=== PATIENT | male | born 1975 | race American Indian/Alaskan Native ===

== ENCOUNTER 2018-04-05 20:43 | Emergency (ER) | payer OTHER ==
[2018-04-05 21:30] VITALS: BP 111/65
[2018-04-05] MEDS ORDERED: NORCO 5/325 ONE (22:17)
[2018-04-05] MEDS ORDERED: NORCO 5/325 PO ONE (22:20)
--- NOTE | 2018-04-05 22:36 | XRay Report ---
FINAL REPORT PROCEDURE: XR ANKLE 3+V LT TECHNIQUE: LEFT ankle radiographs, AP, lateral, and oblique views. CPT 23541 HISTORY: soccer injury pain from heel up back of calf COMPARISON: No prior studies are available for comparison. FINDINGS: Fracture (s) and/or Dislocation(s): None. Alignment: Normal. Joint space(s): Normal. Soft tissues: Normal. Bone mineralization: Normal. Foreign bodies: None. Calcaneal spurring: None. IMPRESSION: Normal Examination.
--- NOTE | 2018-04-05 22:37 | XRay Report ---
FINAL REPORT PROCEDURE: XR FOOT 3+V LT TECHNIQUE: LEFT foot radiographs, AP, lateral, and oblique views. CPT 81193 HISTORY: soccer injury painful heel COMPARISON: No prior studies are available for comparison. FINDINGS: Fracture (s) and/or Dislocation(s): None . Alignment: Normal . Joint space(s): Normal . Soft tissues: Normal . Bone mineralization: Normal . Foreign bodies: None . Calcaneal spurring: None . IMPRESSION: Normal Examination .
--- NOTE | 2018-04-06 02:38 | Emergency Department Report ---
ED Lower Extremity HPI - General Chief Complaint: Extremity Injury, Lower Stated Complaint: LEFT FOOT PAIN Time Seen by Provider: 04/06/18 02:04 Source: patient Mode of arrival: Wheelchair Limitations: No Limitations - History of Present Illness Initial Comments: Patient injured his left heel while he was playing baseball tonight, while he was leaning forward to throw a ball from first base, position he was covering, to third base, when he heard a loud pop in the back of his left heel. He was able take a couple of quick steps, but was unable to walk after that, has severe pain in the back of his left heel, with inability to bear weight. He has no other injury. Onset/Timin -: Sudden, hour(s) Injury: Foot: Left Type of Injury: inversion, hyperflexion Place: other (sports tournament) Severity: severe Severity scale (0 -10): 9 Improves With: nothing Worsens With: movement Context: other (throwing) Associated Symptoms: snap/pop sensation. denies: numbness, tingling - Related Data Previous Rx's Medication Instructions Recorded Last Taken Type HYDROcodone/ACETAMINOPHEN [[place] 1 each PO Q6HR PRN #10 tablet 04/06/18 Unknown Rx 5-325 Tablet] Allergies Allergy/AdvReac Type Severity Reaction Status Date / Time No Known Allergies Allergy Unverified 04/05/18 21:21 ED Review of Systems ROS: Stated complaint: LEFT FOOT PAIN Other details as noted in HPI Comment: All other systems reviewed and negative Constitutional: denies: chills, fever Eyes: denies: eye pain, eye discharge, vision change Respiratory: denies: cough, shortness of breath, wheezing Cardiovascular: denies: chest pain, palpitations Gastrointestinal: denies: abdominal pain, nausea, diarrhea Musculoskeletal: other (pain left heel) Skin: denies: rash, lesions Neurological: denies: headache, weakness, paresthesias Psychiatric: denies: anxiety, depression ED Past Medical Hx - Past Medical History Hx GERD: Yes - Social History Smoking Status: Unknown if ever smoked Substance Use Type: Alcohol - Medications Home Medications: Home Medications Medication Instructions Recorded Confirmed Last Taken Type HYDROcodone/ACETAMINOPHEN [[place] 1 each PO Q6HR PRN #10 tablet 04/06/18 Unknown Rx 5-325 Tablet] ED Physical Exam - General Limitations: No Limitations General appearance: alert, in distress - Head Head exam: Present: atraumatic, normocephalic - Eye Eye exam: Present: PERRL, EOMI - ENT ENT exam: Present: normal exam - Neck Neck exam: Present: normal inspection. Absent: tenderness - Respiratory Respiratory exam: Present: normal lung sounds bilaterally - Cardiovascular Cardiovascular Exam: Present: regular rate - GI/Abdominal GI/Abdominal exam: Present: soft, normal bowel sounds - Expanded Lower Extremity Exam Left Hip exam: Present: normal inspection Upper Leg exam: Present: normal inspection Knee exam: Present: normal inspection Lower Leg exam: Present: tenderness (left Achilles tendon insertion area, with palpable defect) Foot/Toe exam: Present: calcaneal tenderness (palpable Achilles tendon defect posterior calcaneus). Absent: full ROM (unable to plantar flex foot against resistance, normal toe movements, good dorsiflexion and plantar flexion of great toe on left) Neuro vascular tendon exam: Present: no vascular compromise. Absent: pulse deficit Gait: Positive: unable to bear weight (secondary to pain) - Neurological Exam Neurological exam: Present: alert, oriented X3, CN II-XII intact, other (unable to bear weight due to pain). Absent: motor sensory deficit - Psychiatric Psychiatric exam: Present: normal affect, normal mood - Skin Skin exam: Present: warm, dry ED Course Vital Signs 04/05/18 21:19 Temperature 97.5 F L Pulse Rate 58 L Respiratory 18 Rate Blood Pressure 111/65 [Left] O2 Sat by Pulse 100 Oximetry ED Lower Extremity MDM - Radiology Data Radiology results: report reviewed (patient has no bony fracture or dislocation on evaluation of left ankle or foot.) - Medical Decision Making Patient has a left Achilles tendon disruption, he has minimal active flexion of the left foot, but good dorsiflexion, but causes pain at the left Achilles tendon insertion. Nearly complete, he will likely need surgical repair, and should follow with an orthopedist. Referral given. Splint will be applied, crutch training life, but patient has a sedentary job, and feels that he will be adequate - Differential Diagnosis foot fracture, ankle fracture, Achilles tendon disruption Critical Care Time: No Critical care attestation.: If time is entered above; I have spent that time in minutes in the direct care of this critically ill patient, excluding procedure time. ED Disposition Clinical Impression: Achilles tendon tear Qualifiers: Encounter type: initial encounter Laterality: left Qualified Code(s): S86.012A - Strain of left Achilles tendon, initial encounter Disposition: TO HOME OR SELFCARE Is pt being admited?: No Does the pt Need Aspirin: No Condition: Stable Instructions: Crutch Instructions (ED), Achilles Tendon Rupture (ED) Additional Instructions: We have provided a splint which is for comfort and protection of the Achilles tendon, but he will need to see an orthopedic surgeon as soon as possible in order to make arrangements for the repair of the tendon. Use crutches to bear weight, do not attempt to put foot down, but you may take splint off in order to wash or bathe. Keep leg elevated as much as possible, take ibuprofen for minor discomfort, and take hydrocodone for more significant pain. We have provided you a referral to a local orthopedist, Dr. Galeano, and you should contact his office to make arrangements for follow-up. As an alternative, you may follow with an orthopedist at the [facility], where you work. Prescriptions: HYDROcodone/ACETAMINOPHEN [[place] 5-325 Tablet] 1 each PO Q6HR PRN #10 tablet PRN Reason: Pain , Severe (7-10) Referrals: CANDICE GALEANO MD [Staff Physician] - 3-5 Days Forms: Work/School Release Form(ED) Time of Disposition: 02:42
[2018-04-06] MEDS ORDERED: ROXICODONE PO ONE (03:14)
== END 2018-04-06 03:50 | disposition home or self-care (01) ==
LOC: ED 20:43
DX: S91.012A Laceration without foreign body, left ankle, initial encounter (principal); K21.9 Gastro-esophageal reflux disease without esophagitis; X58.XXXA Exposure to other specified factors, initial encounter; Y93.64 Activity, baseball; Y92.89 Other specified places as the place of occurrence of the external cause; Y99.8 Other external cause status
CPT/HCPCS: 99283

== ENCOUNTER 2020-12-02 11:43 | Inpatient (IN) | payer BC, OTHER ==
[2020-12-02] MEDS ORDERED: ACETAMINOPHEN 500 MG TAB PO ONE (11:45)
[2020-12-02] MEDS ORDERED: SODIUM CHLORIDE 0.9% 1000 ML 1,000 ML IV ONE (11:46)
--- NOTE | 2020-12-02 11:48 | Event Note ---
ED Screening Note Date of service: 12/02/20 Time: 11:47 ED Screening Note: 45-year-old -[place] male who was Covid positive for the eighth day presents to the emergency room for worsening symptoms of shortness of breath fever sweats. This initial assessment/diagnostic orders/clinical plan/treatment(s) is/are subject to change based on patients health status, clinical progression and re- assessment by fellow clinical providers in the ED. Further treatment and workup at subsequent clinical providers discretion. Patient/guardian urged not to elope from the ED as their condition may be serious if not clinically assessed and managed. Initial orders include: CBC, CMP, IV insertion, acetaminophen 1 g and normal saline 1 L IV
[2020-12-02] MEDS ORDERED: ONDANSETRON 4 MG/2 ML INJ IV ONE (12:29)
[2020-12-02 12:39] LABS: Basophils % (Auto) 0.2 % (0.0-1.8); Hemoglobin 14.2 gm/dl (11.8-15.2); Lymphocytes # (Auto) 1.6 K/mm3 (1.2-5.4); Lymphocytes % (Auto) 30.7 % (13.4-35.0); Mean Corpuscular HGB Conc 32 % (32-34); Mean Corpuscular Volume 77 fl (84-94); Monocytes # (Auto) 0.4 K/mm3 (0.0-0.8); Monocytes % (Auto) 7.9 % (0.0-7.3); Platelet Count 237 K/mm3 (140-440); Red Blood Count 5.71 M/mm3 (3.65-5.03); Red Cell Distribution Width 15.5 % (13.2-15.2)
--- NOTE | 2020-12-02 12:48 | Emergency Department Report ---
ED Chest Pain HPI - General Chief Complaint: Chest Pain Stated Complaint: COVID +/CHEST PAIN Time Seen by Provider: 12/02/20 11:45 Source: patient Mode of arrival: Wheelchair Limitations: No Limitations - History of Present Illness Initial Comments: This is a 45-year-old -[place] male presents to the emergency department with complaint of chills, subjective fever, sweats, body aches, fatigue, intermittent shortness of breath and some chest discomfort that have been going on for the past 8 days. The patient just tested positive for COVID-19 3 days ago, on 11/29/2020. Patient's also tested positive on the same day. Patient has a history of diabetes but is not currently on any medication. He also has a history of GERD. Patient's primary care physician is a Dr. Kolb. No recent travel. The patient is taken multiple different [id number] medications and vitamins and attempt to treat himself and his symptoms, but he has not gotten any relief. Severity scale (0 -10): 0 - Related Data Previous Rx's Medication Instructions Recorded Last Taken Type HYDROcodone/ACETAMINOPHEN [[place] 1 each PO Q6HR PRN #10 tablet 04/06/18 Unknown Rx 5-325 Tablet] Allergies Allergy/AdvReac Type Severity Reaction Status Date / Time No Known Allergies Allergy Unverified 04/05/18 21:21 Heart Score - HEART Score History: Slightly suspicious EKG: Normal Age: 45-65 Risk factors: 1-2 risk factors Troponin: < normal limit HEART Score: 2 - Critical Actions Critical Actions: 0-3 pts:0.9-1.7%risk of adverse cardiac event.Candidate for discharge ED Review of Systems ROS: Stated complaint: COVID +/CHEST PAIN Other details as noted in HPI Comment: All other systems reviewed and negative Constitutional: chills, diaphoresis, fever, weakness Eyes: denies: eye pain, vision change ENT: denies: ear pain, throat pain Respiratory: cough, shortness of breath Cardiovascular: chest pain. denies: palpitations, edema Gastrointestinal: denies: abdominal pain, vomiting Genitourinary: denies: dysuria, discharge Musculoskeletal: myalgia. denies: joint swelling Skin: denies: rash, lesions Neurological: denies: numbness, paresthesias ED Past Medical Hx - Past Medical History Previous Medical History?: Yes Hx Diabetes: Yes (pre-diabetic) Hx GERD: Yes - Surgical History Past Surgical History?: Yes Additional Surgical History: T&A, Right hand surgery, Right knee surgery, Left Achilles repair - Social History Smoking Status: Current Every Day Smoker Substance Use Type: Alcohol, Prescribed - Medications Home Medications: Home Medications Medication Instructions Recorded Confirmed Last Taken Type HYDROcodone/ACETAMINOPHEN [[place] 1 each PO Q6HR PRN #10 tablet 04/06/18 Unknown Rx 5-325 Tablet] ED Physical Exam - General Limitations: No Limitations - Other Other exam information: GENERAL: The patient is ill-appearing. HENT: Normocephalic. Atraumatic. Patient has moist mucous membranes. EYES: Extraocular motions are intact. NECK: Supple. Trachea is midline. CHEST/LUNGS: Clear to auscultation. A cough heard during examination. No tachypnea accessory muscle use. There is no respiratory distress noted. HEART/CARDIOVASCULAR: Regular. There is no tachycardia. There is no murmur. ABDOMEN: Abdomen is soft, nontender. Patient has normal bowel sounds. SKIN: Skin is warm and dry. NEURO: The patient is awake, alert, and oriented. The patient is cooperative. The patient has no focal neurologic deficits. Normal speech. MUSCULOSKELETAL: There is no tenderness or deformity. There is no limitation range of motion. ED Course Vital Signs 12/02/20 12/02/20 11:47 12:13 Temperature 100.1 F H Pulse Rate 93 H Respiratory 20 20 Rate Blood Pressure 104/49 O2 Sat by Pulse 100 100 Oximetry TOI score - Toi Score Age > 65: (0) No Aspirin use within the Past 7 Days: (0) No 3 or more CAD Risk Factors: (0) No 2 or more Angina events in past 24 hrs: (1) Yes Known CAD with more than 50% Stenosis: (0) No Elevated Cardiac Markers: (0) No ST Deviation Greater than 0.5mm: (0) No TOI Score: 1 ED Medical Decision Making - Lab Data Result diagrams: 12/02/20 12:19 12/02/20 12:19 Lab Results 12/02/20 12/02/20 12/02/20 Range/Units 12:19 12:19 12:19 WBC 5.1 (4.5-11.0) K/mm3 RBC 5.71 H (3.65-5.03) M/mm3 Hgb 14.2 (11.8-15.2) gm/dl Hct 44.0 (35.5-45.6) % MCV 77 L (84-94) fl MCH 25 L (28-32) pg MCHC 32 (32-34) % RDW 15.5 H (13.2-15.2) % Plt Count 237 (140-440) K/mm3 Lymph % (Auto) 30.7 (13.4-35.0) % [place] % (Auto) 7.9 H (0.0-7.3) % Eos % (Auto) 0.0 (0.0-4.3) % Baso % (Auto) 0.2 (0.0-1.8) % Lymph # (Auto) 1.6 (1.2-5.4) K/mm3 [place] # (Auto) 0.4 (0.0-0.8) K/mm3 Eos # (Auto) 0.0 (0.0-0.4) K/mm3 Baso # (Auto) 0.0 (0.0-0.1) K/mm3 Seg Neutrophils % 61.2 (40.0-70.0) % Seg Neutrophils # 3.1 (1.8-7.7) K/mm3 D-Dimer (0-234) ng/mlDDU Sodium 132 L (137-145) mmol/L Potassium 3.6 (3.6-5.0) mmol/L Chloride 97.5 L (98-107) mmol/L Carbon Dioxide 26 (22-30) mmol/L Anion Gap 12 mmol/L BUN 7 L (9-20) mg/dL Creatinine 0.8 (0.8-1.3) mg/dL Estimated GFR > 60 ml/min BUN/Creatinine Ratio 9 % Glucose 106 H (75-100) mg/dL Lactic Acid 1.70 (0.7-2.0) mmol/L Calcium 8.4 (8.4-10.2) mg/dL Ferritin (30.0-300.0) ng/mL Total Bilirubin 0.30 (0.1-1.2) mg/dL AST 94 H (5-40) units/L ALT 125 H (7-56) units/L Alkaline Phosphatase 104 (35-129) units/L Lactate Dehydrogenase 495 H (91-180) units/L Troponin T (0.00-0.029) ng/mL C-Reactive Protein 8.30 H (0.00-1.30) mg/dL Total Protein 7.5 (6.3-8.2) g/dL Albumin 3.5 L (3.9-5) g/dL Albumin/Globulin Ratio 0.9 % Procalcitonin (<0.15) ng/mL 12/02/20 12/02/20 12/02/20 Range/Units 12:19 12:19 12:19 WBC (4.5-11.0) K/mm3 RBC (3.65-5.03) M/mm3 Hgb (11.8-15.2) gm/dl Hct (35.5-45.6) % MCV (84-94) fl MCH (28-32) pg MCHC (32-34) % RDW (13.2-15.2) % Plt Count (140-440) K/mm3 Lymph % (Auto) (13.4-35.0) % [place] % (Auto) (0.0-7.3) % Eos % (Auto) (0.0-4.3) % Baso % (Auto) (0.0-1.8) % Lymph # (Auto) (1.2-5.4) K/mm3 [place] # (Auto) (0.0-0.8) K/mm3 Eos # (Auto) (0.0-0.4) K/mm3 Baso # (Auto) (0.0-0.1) K/mm3 Seg Neutrophils % (40.0-70.0) % Seg Neutrophils # (1.8-7.7) K/mm3 D-Dimer 721.56 H (0-234) ng/mlDDU Sodium (137-145) mmol/L Potassium (3.6-5.0) mmol/L Chloride (98-107) mmol/L Carbon Dioxide (22-30) mmol/L Anion Gap mmol/L BUN (9-20) mg/dL Creatinine (0.8-1.3) mg/dL Estimated GFR ml/min BUN/Creatinine Ratio % Glucose (75-100) mg/dL Lactic Acid (0.7-2.0) mmol/L Calcium (8.4-10.2) mg/dL Ferritin 1627.0 H (30.0-300.0) ng/mL Total Bilirubin (0.1-1.2) mg/dL AST (5-40) units/L ALT (7-56) units/L Alkaline Phosphatase (35-129) units/L Lactate Dehydrogenase (91-180) units/L Troponin T (0.00-0.029) ng/mL C-Reactive Protein (0.00-1.30) mg/dL Total Protein (6.3-8.2) g/dL Albumin (3.9-5) g/dL Albumin/Globulin Ratio % Procalcitonin 0.18 (<0.15) ng/mL 12/02/20 12/02/20 Range/Units 13:23 13:23 WBC (4.5-11.0) K/mm3 RBC (3.65-5.03) M/mm3 Hgb (11.8-15.2) gm/dl Hct (35.5-45.6) % MCV (84-94) fl MCH (28-32) pg MCHC (32-34) % RDW (13.2-15.2) % Plt Count (140-440) K/mm3 Lymph % (Auto) (13.4-35.0) % [place] % (Auto) (0.0-7.3) % Eos % (Auto) (0.0-4.3) % Baso % (Auto) (0.0-1.8) % Lymph # (Auto) (1.2-5.4) K/mm3 [place] # (Auto) (0.0-0.8) K/mm3 Eos # (Auto) (0.0-0.4) K/mm3 Baso # (Auto) (0.0-0.1) K/mm3 Seg Neutrophils % (40.0-70.0) % Seg Neutrophils # (1.8-7.7) K/mm3 D-Dimer (0-234) ng/mlDDU Sodium (137-145) mmol/L Potassium (3.6-5.0) mmol/L Chloride (98-107) mmol/L Carbon Dioxide (22-30) mmol/L Anion Gap mmol/L BUN (9-20) mg/dL Creatinine (0.8-1.3) mg/dL Estimated GFR ml/min BUN/Creatinine Ratio % Glucose (75-100) mg/dL Lactic Acid 1.60 (0.7-2.0) mmol/L Calcium (8.4-10.2) mg/dL Ferritin (30.0-300.0) ng/mL Total Bilirubin (0.1-1.2) mg/dL AST (5-40) units/L ALT (7-56) units/L Alkaline Phosphatase (35-129) units/L Lactate Dehydrogenase (91-180) units/L Troponin T < 0.010 (0.00-0.029) ng/mL C-Reactive Protein (0.00-1.30) mg/dL Total Protein (6.3-8.2) g/dL Albumin (3.9-5) g/dL Albumin/Globulin Ratio % Procalcitonin (<0.15) ng/mL - EKG Data -: EKG Interpreted by Ri EKG shows normal: sinus rhythm, axis, intervals, QRS complexes, ST-T waves Rate: normal - EKG Data When compared to previous EKG there are: previous EKG unavailable Interpretation: normal EKG - Radiology Data Radiology results: report reviewed CT angio chest INDICATION / CLINICAL INFORMATION: MAIN. TECHNIQUE: Axial CT images were obtained after injection of 100 cc of Omnipaque 350 IV contrast using CTA protocol. 3 plane MIP / 3D reconstructions were produced. All CT scans at this location are performed using CT dose reduction for ALARA by means of automated exposure control. COMPARISON: None available. FINDINGS: Following the administration of intravenous contrast, no filling defects are seen in the main pulmonary arteries or their branches. Diffuse bilateral peripheral groundglass opacity is seen in both lungs. No enlarged mediastinal or hilar lymph nodes are identified. No significant skeletal abnormality is identified. IMPRESSION: 1. No evidence of pulmonary embolus 2. Diffuse bilateral peripheral groundglass opacity consistent with atypical or viral pneumonia - Medical Decision Making This patient presents with a 1 week history of fever, chills, body aches, cough, intermittent shortness of breath and was recently found to be positive for COVID-19. He presents with a low-grade fever but the rest of the vital signs have been reassuring thus far. Patient's labs appear consistent with COVID-19. He has elevated inflammatory markers including D-dimer, LDH, CRP and ferritin. He has some mild transaminitis. Patient had one episode of nausea with vomiting after having a CT angiography of the chest in which he had some hematemesis. Chest x-ray shows some mild bilateral groundglass opacities. CT angiography of the chest did not show any pulmonary embolism but showed significant/diffuse bilateral groundglass opacities. The patient has been started on some IV fluid resuscitation, IV Solu-Medrol, IV antibiotics. Given his comorbidities of diabetes, tobacco use, and the level of these elevated inflammatory markers, the patient will be admitted to the hospital for further evaluation and treatment. He was accepted for admission by the hospitalist, Dr. Howell. Critical Care Time: No Critical care attestation.: If time is entered above; I have spent that time in minutes in the direct care of this critically ill patient, excluding procedure time. ED Disposition Clinical Impression: Suspected 2019 novel coronavirus infection, Transaminitis Bilateral pneumonia Qualifiers: Pneumonia type: due to unspecified organism Lung location: unspecified part of lung Qualified Code(s): J18.9 - Pneumonia, unspecified organism Disposition: 09 OP ADMIT IP TO THIS HOSP Is pt being admited?: Yes Condition: Serious Instructions: Bacterial Pneumonia (ED) Referrals: PRIMARY CARE, [Primary Care Provider] - 3-5 Days Time of Disposition: 14:30
--- NOTE | 2020-12-02 12:52 | XRay Report ---
CHEST 1 VIEW 12/02/2020 11:43 AM INDICATION / CLINICAL INFORMATION: covid + fever. COMPARISON: None available. FINDINGS: SUPPORT DEVICES: None. HEART / MEDIASTINUM: No significant abnormality. LUNGS / PLEURA: Faint bilateral peripheral pulmonary opacities are seen. No pneumothorax. ADDITIONAL FINDINGS: No significant additional findings. IMPRESSION: 1. Faint bilateral peripheral pulmonary opacities are compatible with an infectious process including viral etiologies. Signer Name: Rakan Ying MD Signed: 12/02/2020 12:47 PM Workstation Name: No Paper [id number]
[2020-12-02 12:54] LABS: Alanine Aminotransferase 125 units/L (7-56); Albumin 3.5 g/dL (3.9-5); BUN/Creatinine Ratio 9; Blood Urea Nitrogen 7 mg/dL (9-20); Calcium 8.4 mg/dL (8.4-10.2); Hemolysis Index 12
[2020-12-02] MEDS ORDERED: AZITHROMYCIN/NS 500 MG/250 ML 500 MG/250 ML BAG IV ONE (12:59)
[2020-12-02] MEDS ORDERED: methylPREDNISolone Sod Succinate 125 MG/2 ML INJ IV ONE (12:59)
[2020-12-02] MEDS ORDERED: KETOROLAC 30 MG/1 ML INJ IV ONE (12:59)
--- NOTE | 2020-12-02 14:03 | Cat Scan Report ---
CT angio chest INDICATION / CLINICAL INFORMATION: MAIN. TECHNIQUE: Axial CT images were obtained after injection of 100 cc of Omnipaque 350 IV contrast using CTA protoc ol. 3 plane MIP / 3D reconstructions were produced. All CT scans at this location are performed using CT dose reduction for ALARA by means of automated exposure control. COMPARISON: None available. FINDINGS: Following the administration of intravenous contrast, no filling defects are seen in the main pulmona ry arteries or their branches. Diffuse bilateral peripheral groundglass opacity is seen in both lungs . No enlarged mediastinal or hilar lymph nodes are identified. No significant skeletal abnormality is identified. IMPRESSION: 1. No evidence of pulmonary embolus 2. Diffuse bilateral peripheral groundglass opacity consistent with atypical or viral pneumonia Signer Name: Braeden Ying MD FACR Signed: 12/02/2020 1:58 PM Workstation Name: [id number]
[2020-12-02] MEDS ORDERED: diphenhydrAMINE 50 MG/ML VIAL IV ONE (14:29)
[2020-12-02 15:22] LABS: Bilirubin,Urine NEG (Negative); Blood,Urine NEG (Negative); Color,Urine Yellow (Yellow)
[2020-12-02] MEDS: ZOLPIDEM 5 MG TAB PO PRN (22:12)
[2020-12-02] MEDS: guaiFENesin/CODEINE 100-10MG ORAL LIQD 5 ML PO PRN (22:12)
[2020-12-02] MEDS ORDERED: ACETAMINOPHEN 325 MG TAB PO PRN (23:43)
[2020-12-02] MEDS ORDERED: METOCLOPRAMIDE 10 MG/2 ML INJ IV PRN (23:43)
[2020-12-02] MEDS ORDERED: oxyCODONE /ACETAMINOPHEN 5-325MG TAB PO PRN (23:43)
[2020-12-02] MEDS ORDERED: HYDROmorphone 1 MG/1 ML INJ IV PRN (23:43)
--- NOTE | 2020-12-02 23:43 | History and Physical Report ---
History of Present Illness Date of examination: 12/02/20 Date of admission: 12/02/20 14:30 Chief complaint: Fever and cough for 1 week History of present illness: 45-year-old -[place] male with past medical history significant for borderline diabetes comes in for fever chills and diaphoresis and body aches and fatigue for the past 7 days. Patient apparently tested positive for COVID-19 on November 29, 2020. Patient says he was exposed at work. His also got Covid who works insulin [facility]. Patient took multiple different [id number] medications with no help. Patient continued to feel short of breath and hence came to the emergency room for evaluation. In the emergency room patient was found to be having normal oxygenation on room air. Bilateral pneumonia on chest x-ray hence admission. Past medical history --Diabetes: Yes (pre-diabetic) --GERD: Yes - Surgical History Past Surgical History?: Yes Additional Surgical History: T&A, Right hand surgery, Right knee surgery, Left Achilles repair - Social History Smoking Status: Current Every Day Smoker--1/2 pack per day Substance Use Type: Alcohol, Prescribedm Family history HTN - Medications Home Medications: Home Medications Medication Instructions Recorded Confirmed Last Taken Type HYDROcodone/ACETAMINOPHEN [[place] 1 each PO Q6HR PRN #10 tablet 04/06/18 Unknown Rx 5-325 Tablet] Review of Systems ROS: Stated complaint: COVID +/CHEST PAIN Other details as noted in HPI Comment: All other systems reviewed and negative Constitutional: chills, diaphoresis, fever, weakness Eyes: denies: eye pain, vision change ENT: denies: ear pain, throat pain Respiratory: cough, shortness of breath Cardiovascular: chest pain. denies: palpitations, edema Gastrointestinal: denies: abdominal pain, vomiting Genitourinary: denies: dysuria, discharge Musculoskeletal: myalgia. denies: joint swelling Skin: denies: rash, lesions Neurological: denies: numbness, paresthesias Medications and Allergies Allergies Allergy/AdvReac Type Severity Reaction Status Date / Time No Known Allergies Allergy Unverified 04/05/18 21:21 Home Medications Medication Instructions Recorded Confirmed Last Taken Type HYDROcodone/ACETAMINOPHEN [[place] 1 each PO Q6HR PRN #10 tablet 04/06/18 12/03/20 Unknown Rx 5-325 Tablet] Omeprazole 40 mg PO DAILY 12/03/20 12/03/20 Unknown History Active Meds: Active Medications Pseudoephedrine/Acetam/Chlorphenir (Guaifenesin/Codeine 100-10mg Oral Liqd 5 Ml) 10 ml PO Q8HR PRN PRN Reason: Cough Last Admin: 12/02/20 22:12 Dose: 10 ml Documented by: Zolpidem Tartrate (Zolpidem 5 Mg Tab) 5 mg PO QHS PRN PRN Reason: Sleep Last Admin: 12/02/20 22:12 Dose: 5 mg Documented by: Exam - Constitutional Vitals: Temp Pulse Resp BP Pulse Ox 97.4 F L 64 16 103/46 99 12/02/20 21:48 12/02/20 21:48 12/02/20 21:48 12/02/20 21:48 12/02/20 21:48 General appearance: Present: mild distress, well-nourished - EENT Eyes: Present: PERRL ENT: hearing intact, clear oral mucosa - Neck Neck: Present: supple, normal ROM - Respiratory Respiratory effort: normal Respiratory: bilateral: CTA - Cardiovascular Heart rate: 88 Rhythm: regular Heart Sounds: Present: S1 & S2. Absent: rub, click - Extremities Extremities: pulses symmetrical, No edema Peripheral Pulses: within normal limits - Abdominal General gastrointestinal: Present: soft, non-tender, non-distended, normal bowel sounds Male genitourinary: Present: normal - Rectal Rectal Exam: deferred - Integumentary Integumentary: Present: clear, warm, dry - Musculoskeletal Musculoskeletal: gait normal, strength equal bilaterally - Psychiatric Psychiatric: appropriate mood/affect, intact judgment & insight - Neurologic Neurologic: CNII-XII intact, moves all extremities - Allied Health Allied health notes reviewed: nursing, case management HEART Score - HEART Score History: Slightly suspicious EKG: Normal Age: 45-65 Risk factors: 1-2 risk factors Troponin: Troponin T < 0.010 ng/mL (0.00-0.029) 12/02/20 13:23 Troponin: < normal limit HEART Score: 2 - Critical Actions Critical Actions: 0-3 pts:0.9-1.7%risk of adverse cardiac event.Candidate for d ischarge Results - Labs CBC & Chem 7: 12/02/20 12:19 12/02/20 12:19 Labs: Laboratory Last Values WBC 5.1 K/mm3 (4.5-11.0) 12/02/20 12:19 RBC 5.71 M/mm3 (3.65-5.03) H 12/02/20 12:19 Hgb 14.2 gm/dl (11.8-15.2) 12/02/20 12:19 Hct 44.0 % (35.5-45.6) 12/02/20 12:19 MCV 77 fl (84-94) L 12/02/20 12:19 MCH 25 pg (28-32) L 12/02/20 12:19 MCHC 32 % (32-34) 12/02/20 12:19 RDW 15.5 % (13.2-15.2) H 12/02/20 12:19 Plt Count 237 K/mm3 (140-440) 12/02/20 12:19 Lymph % (Auto) 30.7 % (13.4-35.0) 12/02/20 12:19 [place] % (Auto) 7.9 % (0.0-7.3) H 12/02/20 12:19 Eos % (Auto) 0.0 % (0.0-4.3) 12/02/20 12:19 Baso % (Auto) 0.2 % (0.0-1.8) 12/02/20 12:19 Lymph # (Auto) 1.6 K/mm3 (1.2-5.4) 12/02/20 12:19 [place] # (Auto) 0.4 K/mm3 (0.0-0.8) 12/02/20 12:19 Eos # (Auto) 0.0 K/mm3 (0.0-0.4) 12/02/20 12:19 Baso # (Auto) 0.0 K/mm3 (0.0-0.1) 12/02/20 12:19 Seg Neutrophils % 61.2 % (40.0-70.0) 12/02/20 12:19 Seg Neutrophils # 3.1 K/mm3 (1.8-7.7) 12/02/20 12:19 D-Dimer 721.56 ng/mlDDU (0-234) H 12/02/20 12:19 Sodium 132 mmol/L (137-145) L 12/02/20 12:19 Potassium 3.6 mmol/L (3.6-5.0) 12/02/20 12:19 Chloride 97.5 mmol/L (98-107) L 12/02/20 12:19 Carbon Dioxide 26 mmol/L (22-30) 12/02/20 12:19 Anion Gap 12 mmol/L 12/02/20 12:19 BUN 7 mg/dL (9-20) L 12/02/20 12:19 Creatinine 0.8 mg/dL (0.8-1.3) 12/02/20 12:19 Estimated GFR > 60 ml/min 12/02/20 12:19 BUN/Creatinine Ratio 9 % 12/02/20 12:19 Glucose 106 mg/dL (75-100) H 12/02/20 12:19 POC Glucose 188 mg/dL (70-105) H 12/02/20 21:59 Lactic Acid 1.60 mmol/L (0.7-2.0) 12/02/20 13:23 Calcium 8.4 mg/dL (8.4-10.2) 12/02/20 12:19 Ferritin 1627.0 ng/mL (30.0-300.0) H 12/02/20 12:19 Total Bilirubin 0.30 mg/dL (0.1-1.2) 12/02/20 12:19 AST 94 units/L (5-40) H 12/02/20 12:19 ALT 125 units/L (7-56) H 12/02/20 12:19 Alkaline Phosphatase 104 units/L (35-129) 12/02/20 12:19 Lactate Dehydrogenase 495 units/L (91-180) H 12/02/20 12:19 Troponin T < 0.010 ng/mL (0.00-0.029) 12/02/20 13:23 C-Reactive Protein 8.30 mg/dL (0.00-1.30) H 12/02/20 12:19 Total Protein 7.5 g/dL (6.3-8.2) 12/02/20 12:19 Albumin 3.5 g/dL (3.9-5) L 12/02/20 12:19 Albumin/Globulin Ratio 0.9 % 12/02/20 12:19 Procalcitonin 0.18 ng/mL (<0.15) 12/02/20 12:19 Urine Color Yellow (Yellow) 12/02/20 14:44 Urine Turbidity Clear (Clear) 12/02/20 14:44 Urine pH 6.0 (5.0-7.0) 12/02/20 14:44 Ur Specific [place] 1.015 (1.003-1.030) 12/02/20 14:44 Urine Protein 30 mg/dl mg/dL (Negative) 12/02/20 14:44 Urine Glucose (UA) Neg mg/dL (Negative) 12/02/20 14:44 Urine Ketones Neg mg/dL (Negative) 12/02/20 14:44 Urine Blood Neg (Negative) 12/02/20 14:44 Urine Nitrite Neg (Negative) 12/02/20 14:44 Urine Bilirubin Neg (Negative) 12/02/20 14:44 Urine Urobilinogen 2.0 mg/dL (<2.0) 12/02/20 14:44 Ur Leukocyte Esterase Neg (Negative) 12/02/20 14:44 Urine WBC (Auto) 1.0 /HPF (0.0-6.0) 12/02/20 14:44 Urine RBC (Auto) 0.0 /HPF (0.0-6.0) 12/02/20 14:44 Short CBC 12/02/20 Range/Units 12:19 WBC 5.1 (4.5-11.0) K/mm3 Hgb 14.2 (11.8-15.2) gm/dl Hct 44.0 (35.5-45.6) % Plt Count 237 (140-440) K/mm3 BMP 12/02/20 12:19 Sodium 132 L Potassium 3.6 Chloride 97.5 L Carbon Dioxide 26 BUN 7 L Creatinine 0.8 Glucose 106 H Calcium 8.4 Cardiac Enzymes 12/02/20 Range/Units 13:23 Troponin T < 0.010 (0.00-0.029) ng/mL Liver Function 12/02/20 Range/Units 12:19 Total Bilirubin 0.30 (0.1-1.2) mg/dL AST 94 H (5-40) units/L ALT 125 H (7-56) units/L Alkaline Phosphatase 104 (35-129) units/L Albumin 3.5 L (3.9-5) g/dL Urine 12/02/20 Range/Units 14:44 Urine Color Yellow (Yellow) Urine pH 6.0 (5.0-7.0) Ur Specific [place] 1.015 (1.003-1.030) Urine Protein 30 mg/dl (Negative) mg/dL Urine Glucose (UA) Neg (Negative) mg/dL Microbiology: Microbiology 12/02/20 12:19 Peripheral/Venous Blood Culture - Preliminary Culture in Progress 12/02/20 12:19 Peripheral/Venous Blood Culture - Preliminary Culture in Progress - Imaging and Cardiology EKG: report reviewed (Sinus rhythm-heart rate of 78/min) Chest x-ray: report reviewed Imaging and Cardiology: Chest x-ray IMPRESSION: 1. Faint bilateral peripheral pulmonary opacities are compatible with an infectious process including viral etiologies. Ramirez/IV: IV Catheter Type [Right Peripheral IV Antecubital] Assessment and Plan Advance Directives: Yes (Full code) VTE prophylaxis?: Chemical Plan of care discussed with patient/family: Yes - Patient Problems (1) Acute respiratory failure with hypoxia Current Visit: Yes Status: Acute Plan to address problem: Patient is ambulatory saturations are low Oxygen supplementation as necessary (2) Bilateral pneumonia Current Visit: Yes Status: Acute Qualifiers: Pneumonia type: due to unspecified organism Lung location: unspecified part of lung Qualified Code(s): J18.9 - Pneumonia, unspecified organism Plan to address problem: Treat as community-acquired pneumonia for now Check pro calcitonin level ID consult requested IV Rocephin and Zithromax initiated Patient initiated on IV Decadron 8 mg every 24 (3) Suspected 2019 novel coronavirus infection Current Visit: Yes Status: Acute Plan to address problem: Coronavirus PCR pending (4) Transaminitis Current Visit: Yes Status: Acute Plan to address problem: Probably secondary to Covid infection AST is 94 and ALT is 127 (5) T2DM (type 2 diabetes mellitus) Current Visit: Yes Status: Chronic 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 Plan to address problem: Borderline We will recheck hemoglobin A1c Coverage for now (6) GERD (gastroesophageal reflux disease) Current Visit: Yes Status: Chronic Qualifiers: Esophagitis presence: without esophagitis Qualified Code(s): K21.9 - Gastro-esophageal reflux disease without esophagitis Plan to address problem: Patient initiated on famotidine (7) Hyponatremia Current Visit: Yes Status: Acute Plan to address problem: Mild Should correct weights of No IV fluids at this time because of possible Covid infection (8) DVT prophylaxis Current Visit: Yes Status: Acute Plan to address problem: On Lovenox and GI prophylaxis Lovenox 110 milligrams every 12 subcu because of elevated D-dimers and ferritin D-dimer is 721 and ferritin is 1627
[2020-12-02] MEDS ORDERED: dexAMETHasone 4 MG/ML VIAL IV SCH (23:45)
[2020-12-03] MEDS: guaiFENesin/CODEINE 100-10MG ORAL LIQD 5 ML PO PRN ×2 (05:31→14:10)
[2020-12-03] MEDS ORDERED: AZITHROMYCIN/NS 500 MG/250 ML 500 MG/250 ML BAG IV SCH (10:00)
[2020-12-03] MEDS ORDERED: dexAMETHasone 4 MG/ML VIAL IV SCH ×2 (10:00)
[2020-12-03 10:01] LABS: Basophils % (Auto) 0.3 % (0.0-1.8); Hematocrit 43.5 % (35.5-45.6); Hemoglobin 14.8 gm/dl (11.8-15.2); Lymphocytes # (Auto) 0.9 K/mm3 (1.2-5.4); Mean Corpuscular HGB Conc 34 % (32-34); Mean Corpuscular Volume 75 fl (84-94); Monocytes # (Auto) 0.5 K/mm3 (0.0-0.8); Monocytes % (Auto) 7.5 % (0.0-7.3); Platelet Count 272 K/mm3 (140-440); Red Blood Count 5.81 M/mm3 (3.65-5.03); Red Cell Distribution Width 15.4 % (13.2-15.2)
[2020-12-03 10:19] LABS: Alanine Aminotransferase 108 units/L (7-56); Albumin 3.9 g/dL (3.9-5); BUN/Creatinine Ratio 13; Blood Urea Nitrogen 10 mg/dL (9-20); Calcium 8.5 mg/dL (8.4-10.2); Hemolysis Index 20
[2020-12-03] MEDS: ENOXAPARIN 120 MG/0.8 ML INJ SUB-Q SCH ×2 (10:40→22:35)
[2020-12-03] MEDS: FAMOTIDINE 20 MG TAB PO SCH ×2 (10:41→22:35)
[2020-12-03] MEDS: ZINC SULFATE 220 MG CAP PO SCH ×3 (10:42→22:35)
[2020-12-03] MEDS: cefTRIAXone/NS 2 GM/100 ML 2 GM/100 ML BAG IV SCH (10:42)
[2020-12-03] MEDS: ASCORBIC ACID 500 MG TAB PO SCH ×3 (10:42→22:35)
[2020-12-03 13:48] LABS: Alanine Aminotransferase 102 units/L (7-56); Albumin 3.5 g/dL (3.9-5); Blood Urea Nitrogen 10 mg/dL (9-20); Calcium 8.5 mg/dL (8.4-10.2); Hemolysis Index 9
[2020-12-03 14:01] LABS: BUN/Creatinine Ratio 14
[2020-12-03] MEDS ORDERED: LOPERAMIDE 2 MG CAP PO PRN (16:00)
[2020-12-03] MEDS: guaiFENesin ER 600 MG TAB PO SCH ×2 (17:59→22:35)
--- NOTE | 2020-12-03 18:18 | Progress Note ---
Assessment and Plan Assessment and plan: COVID-19 pneumonia -12/02 CXR shows faint bilateral peripheral pulmonary opacities which are compatible with infectious process including viral etiologies -12/02 CTA chest shows diffuse bilateral peripheral groundglass opacities consistent with atypical viral pneumonia, no pulmonary embolism -Patient tested positive for COVID-19 infection on 11/29/2020 at outside facility -12/03 COVID-19 PCR positive -S/p azithromycin and Solu-Medrol in the emergency department -Azithromycin 500 mg p.o. daily for 3 doses, ceftriaxone 2 g per 24 hours IV -12/02 procalcitonin 0.18 -SPO2 monitoring -Pulmonary hygiene -Supplemental oxygen as needed -OOB 3 times daily -Anticoagulation per protocol -Trend Covid inflammatory markers for risk stratification -Obtain ambulatory SPO2 prior to discharge -Infectious disease consulted, appreciate recommendations -Vitamin C, zinc, vitamin D - 12/02 blood cultures x2 pending Acute hypoxemic respiratory failure -SPO2 on arrival to the emergency department was low -Dexamethasone for 10 days -SPO2 monitoring -Pulmonary hygiene -Supplemental oxygen as needed -Obtain ambulatory SPO2 prior to discharge Elevated D-dimer -12/02 D-dimer 721 -12/02 CTA chest negative for pulmonary embolism -Anticoagulation per protocol -Trend D-dimer Transaminitis -Presented with AST 94, ALT 125, alk phos 104 with T bili 0.30 -12/03 LFTs: T bili 0.3, AST 67, ALT 108 -Likely secondary to COVID-19 infection -Trend LFTs Diabetes mellitus -Patient states that he has "borderline diabetes" -12/03 hemoglobin A1c 6.8 -CC diet -Accu-Cheks AC at bedtime -SSI Tobacco abuse -Smoking cessation education completed -Consider transdermal nicotine patch to aid in cessation DVT prophylaxis -Lovenox subcu -SCDs to bilateral from swelling bed Hyponatremia, resolved -12/02 presented with a sodium of 132 -Trend BMP -12/03 sodium 138 Hypochloremia, resolved -12/02 chloride 97.5 -12/03 chloride 103.9 -Trend BMP History Interval history: This is a 45-year-old male with borderline diabetes, GERD and current tobacco abuse (half a pack per day) who presented to the emergency department on 12/02 for fevers, chills, diaphoresis, body aches and fatigue over the past 7 days. P atient tested positive for COVID-19 and November 29, 2020 and says he was exposed at work. Work-up in the emergency department included a CXR which showed faint bilateral peripheral pulmonary opacities which are compatible with infectious process including viral etiologies, elevated D-dimer at 721, CTA chest showed no evidence of pulmonary embolism and diffuse bilateral peripheral groundglass opac ities consistent with atypical or viral pneumonia, hyponatremia at 132, hypochloremia as 97.5, hyperglycemia 188, transaminitis (AST 94, ALT 125, alk phos 104) and elevated COVID-19 inflammatory markers. Patient was admitted to the hospital service and made a COVID-19 PUI. 12/03: COVID-19 PCR positive, room air, symptomatically better 6-minute walk test SPO2 89% on room air. Hospitalist Physical - Constitutional Vitals: Temp Pulse Resp BP Pulse Ox 98.8 F 78 22 128/70 97 12/03/20 16:41 12/03/20 16:41 12/03/20 16:41 12/03/20 16:41 12/03/20 16:41 General appearance: Present: mild distress, well-nourished HEART Score - HEART Score EKG: Normal Age: 45-65 Risk factors: 1-2 risk factors Troponin: Troponin T < 0.010 ng/mL (0.00-0.029) 12/02/20 13:23 Troponin: < normal limit - Critical Actions Critical Actions: 0-3 pts:0.9-1.7%risk of adverse cardiac event.Candidate for discharge Results - Labs CBC & Chem 7: 12/03/20 09:38 12/03/20 12:59 Labs: Laboratory Last Values WBC 6.3 K/mm3 (4.5-11.0) 12/03/20 09:38 RBC 5.81 M/mm3 (3.65-5.03) H 12/03/20 09:38 Hgb 14.8 gm/dl (11.8-15.2) 12/03/20 09:38 Hct 43.5 % (35.5-45.6) 12/03/20 09:38 MCV 75 fl (84-94) L 12/03/20 09:38 MCH 26 pg (28-32) L 12/03/20 09:38 MCHC 34 % (32-34) 12/03/20 09:38 RDW 15.4 % (13.2-15.2) H 12/03/20 09:38 Plt Count 272 K/mm3 (140-440) 12/03/20 09:38 Lymph % (Auto) 15.0 % (13.4-35.0) 12/03/20 09:38 [place] % (Auto) 7.5 % (0.0-7.3) H 12/03/20 09:38 Eos % (Auto) 0.0 % (0.0-4.3) 12/03/20 09:38 Baso % (Auto) 0.3 % (0.0-1.8) 12/03/20 09:38 Lymph # (Auto) 0.9 K/mm3 (1.2-5.4) L 12/03/20 09:38 [place] # (Auto) 0.5 K/mm3 (0.0-0.8) 12/03/20 09:38 Eos # (Auto) 0.0 K/mm3 (0.0-0.4) 12/03/20 09:38 Baso # (Auto) 0.0 K/mm3 (0.0-0.1) 12/03/20 09:38 Seg Neutrophils % 77.2 % (40.0-70.0) H 12/03/20 09:38 Seg Neutrophils # 4.8 K/mm3 (1.8-7.7) 12/03/20 09:38 D-Dimer 721.56 ng/mlDDU (0-234) H 12/02/20 12:19 Sodium 138 mmol/L (137-145) 12/03/20 12:59 Potassium 4.3 mmol/L (3.6-5.0) 12/03/20 12:59 Chloride 103.4 mmol/L (98-107) 12/03/20 12:59 Carbon Dioxide 27 mmol/L (22-30) 12/03/20 12:59 Anion Gap 12 mmol/L 12/03/20 12:59 BUN 10 mg/dL (9-20) 12/03/20 12:59 Creatinine 0.7 mg/dL (0.8-1.3) L 12/03/20 12:59 Estimated GFR > 60 ml/min 12/03/20 12:59 BUN/Creatinine Ratio 14 % 12/03/20 12:59 Glucose 106 mg/dL (75-100) H 12/03/20 12:59 POC Glucose 188 mg/dL (70-105) H 12/02/20 21:59 Hemoglobin A1c 6.8 % (4-6) H 12/03/20 09:38 Lactic Acid 1.60 mmol/L (0.7-2.0) 12/02/20 13:23 Calcium 8.5 mg/dL (8.4-10.2) 12/03/20 12:59 Ferritin 1627.0 ng/mL (30.0-300.0) H 12/02/20 12:19 Total Bilirubin 0.30 mg/dL (0.1-1.2) 12/03/20 12:59 AST 62 units/L (5-40) H 12/03/20 12:59 ALT 102 units/L (7-56) H 12/03/20 12:59 Alkaline Phosphatase 98 units/L (35-129) 12/03/20 12:59 Lactate Dehydrogenase 495 units/L (91-180) H 12/02/20 12:19 Troponin T < 0.010 ng/mL (0.00-0.029) 12/02/20 13:23 C-Reactive Protein 8.30 mg/dL (0.00-1.30) H 12/02/20 12:19 Total Protein 7.7 g/dL (6.3-8.2) 12/03/20 12:59 Albumin 3.5 g/dL (3.9-5) L 12/03/20 12:59 Albumin/Globulin Ratio 0.8 % 12/03/20 12:59 Procalcitonin 0.18 ng/mL (<0.15) 12/02/20 12:19 Urine Color Yellow (Yellow) 12/02/20 14:44 Urine Turbidity Clear (Clear) 12/02/20 14:44 Urine pH 6.0 (5.0-7.0) 12/02/20 14:44 Ur Specific [place] 1.015 (1.003-1.030) 12/02/20 14:44 Urine Protein 30 mg/dl mg/dL (Negative) 12/02/20 14:44 Urine Glucose (UA) Neg mg/dL (Negative) 12/02/20 14:44 Urine Ketones Neg mg/dL (Negative) 12/02/20 14:44 Urine Blood Neg (Negative) 12/02/20 14:44 Urine Nitrite Neg (Negative) 12/02/20 14:44 Urine Bilirubin Neg (Negative) 12/02/20 14:44 Urine Urobilinogen 2.0 mg/dL (<2.0) 12/02/20 14:44 Ur Leukocyte Esterase Neg (Negative) 12/02/20 14:44 Urine WBC (Auto) 1.0 /HPF (0.0-6.0) 12/02/20 14:44 Urine RBC (Auto) 0.0 /HPF (0.0-6.0) 12/02/20 14:44 Coronavirus (PCR) Positive (Negative) A 12/03/20 Unknown Microbiology: Microbiology 12/02/20 12:19 Peripheral/Venous Blood Culture - Preliminary NO GROWTH AFTER 24 HOURS 12/02/20 12:19 Peripheral/Venous Blood Culture - Preliminary NO GROWTH AFTER 24 HOURS Ramirez/IV: Voiding Method Toilet IV Catheter Type [Right Peripheral IV Antecubital] Active Medications - Current Medications Current Medications: Generic Name Dose Route Start Last Admin Trade Name Freq PRN Reason Stop Dose Admin Acetaminophen 650 mg 12/02/20 23:43 Acetaminophen 325 Mg Tab PO Q4H PRN Pain MILD(1-3)/Fever >100.5/BAKER Ascorbic Acid 1,000 mg 12/02/20 23:45 12/03/20 10:42 Ascorbic Acid 500 Mg Tab PO 1,000 mg BID GABRIELA Administration Azithromycin 500 mg 12/04/20 10:00 Azithromycin 250 Mg Tab PO 12/06/20 10:01 QDAY GABRIELA Dexamethasone 6 mg 12/03/20 10:00 12/03/20 10:41 Dexamethasone 4 Mg/Ml Vial IV 12/11/20 10:01 6 mg DAILY GABRIELA Administration Enoxaparin Sodium 110 mg 12/03/20 07:00 12/03/20 10:40 Enoxaparin 120 Mg/0.8 Ml Inj SUB-Q 110 mg Q12H GABRIELA Administration Protocol Famotidine 20 mg 12/03/20 10:00 12/03/20 10:41 Famotidine 20 Mg Tab PO 20 mg BID GABRIELA Administration Guaifenesin 600 mg 12/03/20 18:00 12/03/20 17:59 Guaifenesin Er 600 Mg Tab PO 600 mg BID GABRIELA Administration Hydromorphone HCl 0.5 mg 12/02/20 23:43 Hydromorphone 1 Mg/1 Ml Inj IV Q3H PRN Pain , Severe (7-10) Ceftriaxone Sodium 2 gm in 100 mls @ 200 mls/hr 12/03/20 10:00 12/03/20 10:42 Rocephin/Ns 2 Gm/100 Ml IV 200 mls/hr Q24HR GABRIELA Administration Protocol Loperamide HCl 2 mg 12/03/20 16:00 Loperamide 2 Mg Cap PO Q2H PRN Diarrhea Metoclopramide HCl 10 mg 12/02/20 23:43 Metoclopramide 10 Mg/2 Ml Inj IV Q6H PRN Nausea And Vomiting Ondansetron HCl 4 mg 12/02/20 23:43 Ondansetron 4 Mg/2 Ml Inj IV Q8H PRN Nausea And Vomiting Oxycodone/Acetaminophen 1 tab 12/02/20 23:43 Oxycodone /Acetaminophen 5-325mg Tab PO Q6H PRN Pain, Moderate (4-6) Pseudoephedrine/Acetam/Chlorphenir 10 ml 12/02/20 22:06 12/03/20 14:10 Guaifenesin/Codeine 100-10mg Oral Liqd 5 Ml PO 10 ml Q8HR PRN Administration Cough Sodium Chloride 10 ml 12/03/20 10:00 12/03/20 10:42 Sodium Chloride 0.9% 10 Ml Flush Syringe IV 10 ml BID GABRIELA Administration Sodium Chloride 10 ml 12/02/20 23:43 Sodium Chloride 0.9% 10 Ml Flush Syringe IV PRN PRN LINE FLUSH Zinc Sulfate 220 mg 12/02/20 23:45 12/03/20 10:42 Zinc Sulfate 220 Mg Cap PO 220 mg BID GABRIELA Administration Zolpidem Tartrate 5 mg 12/02/20 22:07 12/02/20 22:12 Zolpidem 5 Mg Tab PO 5 mg QHS PRN Administration Sleep Nutrition/Malnutrition Assess - Dietary Evaluation Nutrition/Malnutrition Findings: Nutrition Notes Start: 12/03/20 15: 27 Freq: Status: Active Protocol: Document 12/03/20 15:27 TRELL (Rec: 12/03/20 15:36 MK [id number]) Nutrition Notes Need for Assessment generated from: MD Order,MST Initial or Follow up Assessment Current Diagnosis Diabetes Other Pertinent Diagnosis PNS, acure respiratory failure , GERD, COVID(+) Current Diet Consistent CHO Labs/Tests Reviewed Pertinent Medications Decadron Height 5 ft 11 in Weight 109.316 kg Usual Body Weight 109.54 kg [place] Body Weight (kg) 78.18 BMI 33.6 Intake Prior to Admission Poor Weight Status Obese Subjective/Other Information RN screen for MST and skin risk. Dylan score 23. Pt reports only eating bites of meals for 7 days [employer]. He states his appetite has improved but doesn't like the food choices here. Food prefrences noted. Pt reports eating 25% of meals. Burn Absent Trauma Absent GI Symptoms None Current % PO Poor (25-49%) Minimum of two criteria No Energy Intake (non-severe) <75% Estimated Energy Requirement >7 days #1 Nutrition Diagnosis Inadequate oral intake Etiology COVID-19, food prefrences As Evidenced by Signs and Symptoms pt eating 25% of meals Is patient on ventilator? No Is Patient Ambulatory and/or Out of Bed Yes REE-(Mora-St. Jeor-ambulatory/OOB) [ 2593.877 [id number]] Kcal/Kg value to use for calculation 19 Approximate Energy Requirements Using 7 kcal/Kg Calculation Used for Recommendations Kcal/kg Additional Notes Protein: 75-94g (0.8-1g/kg AdjBW: 94kg) Fluid: 1ml/kcal Nutrition Intervention Change Diet Order: Continue Goal #1 Meet at least 75% of protein and energy needs via PO intakes Anticipated Discharge Needs: Consistent CHO Follow-Up By: 12/05/20 Additional Comments FU for intakes
[2020-12-03] MEDS ORDERED: ENOXAPARIN 40 MG/0.4 ML INJ SUB-Q SCH (22:00)
[2020-12-03] MEDS: ZOLPIDEM 5 MG TAB PO PRN (22:36)
[2020-12-04 06:32] LABS: Alanine Aminotransferase 78 units/L (7-56); Albumin 3.4 g/dL (3.9-5)
[2020-12-04 06:42] LABS: Bilirubin,Direct < 0.2 mg/dL (0-0.2)
--- NOTE | 2020-12-04 08:59 | Progress Note ---
Assessment and Plan Assessment and plan: --COVID-19 pneumonia: Isolation precautions contact and droplet [place] PCR positive on 12/03/2020 Patient already has positive test prior to admission 11/29/2020 IV dexamethasone total 10 days this Patient is not hypoxic, no indication for remdesivir at this point Home oxygen evaluation Recommend prone position as tolerated Follow ID evaluation and recommendations Inflammatory markers --Severe dyspnea reported by the patient; on admission However there is no documented hypoxia since admission Not needing any supplemental oxygen Closely monitor --Elevated D-dimers; due to COVID-19 CTA chest negative for PE, check lower extremity venous Doppler to rule out DVT --Transaminitis; probably Covid related Treat the underlying cause, trend the LFTs --Borderline diabetes/prediabetes Not on any medications, A1c 6.8 Accu-Chek sliding scale coverage ADA diet, insulin as needed --Hyponatremia; present on admission Resolved, closely monitor electrolytes --Ongoing tobacco use; Smoking cessation counseling done Nicotine patch as needed I spent 15 minutes counseling the patient Advised to quit tobacco use Recent consequences and complications Explained to the patient he verbalized understanding --DVT prophylaxis;Lovenox Closely monitor patient and adjust management as needed Plan of care reviewed with the patient and his nurse History Interval history: I have seen and examined the patient at the bedside this morning Strict isolation precautions, PPE protocols followed while evaluating the patient Patient had an episode of severe nausea, brief hypotension and soiled himself with large bowel movement. Patient did not have loss of consciousness, symptoms resolved The nurse helped him to the bed When I evaluated the patient patient feels anxious Concerned about his Covid infection And wanted to talk to the ID physician Vital signs reviewed Hospitalist Physical - Constitutional Vitals: Temp Pulse Resp BP Pulse Ox 99.9 F H 80 20 120/45 93 12/04/20 05:43 12/04/20 05:43 12/04/20 05:43 12/04/20 05:43 12/04/20 08:31 General appearance: Present: mild distress, well-nourished, obese - EENT Eyes: Present: PERRL, EOM intact - Neck Neck: Present: supple, normal ROM - Respiratory Respiratory effort: normal Respiratory: bilateral: diminished, rhonchi, negative: rales, wheezing - Cardiovascular Rhythm: regular Heart Sounds: Present: S1 & S2 - Extremities Extremities: no ischemia, pulses intact Peripheral Pulses: within normal limits - Abdominal General gastrointestinal: soft, non-tender, non-distended, normal bowel sounds - Integumentary Integumentary: Present: clear, warm - Psychiatric Psychiatric: appropriate mood/affect, cooperative - Neurologic Neurologic: CNII-XII intact, moves all extremities HEART Score - HEART Score EKG: Normal Age: 45-65 Risk factors: 1-2 risk factors Troponin: Troponin T < 0.010 ng/mL (0.00-0.029) 12/02/20 13:23 Troponin: < normal limit - Critical Actions Critical Actions: 0-3 pts:0.9-1.7%risk of adverse cardiac event.Candidate for discharge Results - Labs CBC & Chem 7: 12/03/20 09:38 12/03/20 12:59 Labs: Laboratory Last Values WBC 6.3 K/mm3 (4.5-11.0) 12/03/20 09:38 RBC 5.81 M/mm3 (3.65-5.03) H 12/03/20 09:38 Hgb 14.8 gm/dl (11.8-15.2) 12/03/20 09:38 Hct 43.5 % (35.5-45.6) 12/03/20 09:38 MCV 75 fl (84-94) L 12/03/20 09:38 MCH 26 pg (28-32) L 12/03/20 09:38 MCHC 34 % (32-34) 12/03/20 09:38 RDW 15.4 % (13.2-15.2) H 12/03/20 09:38 Plt Count 272 K/mm3 (140-440) 12/03/20 09:38 Lymph % (Auto) 15.0 % (13.4-35.0) 12/03/20 09:38 [place] % (Auto) 7.5 % (0.0-7.3) H 12/03/20 09:38 Eos % (Auto) 0.0 % (0.0-4.3) 12/03/20 09:38 Baso % (Auto) 0.3 % (0.0-1.8) 12/03/20 09:38 Lymph # (Auto) 0.9 K/mm3 (1.2-5.4) L 12/03/20 09:38 [place] # (Auto) 0.5 K/mm3 (0.0-0.8) 12/03/20 09:38 Eos # (Auto) 0.0 K/mm3 (0.0-0.4) 12/03/20 09:38 Baso # (Auto) 0.0 K/mm3 (0.0-0.1) 12/03/20 09:38 Seg Neutrophils % 77.2 % (40.0-70.0) H 12/03/20 09:38 Seg Neutrophils # 4.8 K/mm3 (1.8-7.7) 12/03/20 09:38 D-Dimer 721.56 ng/mlDDU (0-234) H 12/02/20 12:19 Sodium 138 mmol/L (137-145) 12/03/20 12:59 Potassium 4.3 mmol/L (3.6-5.0) 12/03/20 12:59 Chloride 103.4 mmol/L (98-107) 12/03/20 12:59 Carbon Dioxide 27 mmol/L (22-30) 12/03/20 12:59 Anion Gap 12 mmol/L 12/03/20 12:59 BUN 10 mg/dL (9-20) 12/03/20 12:59 Creatinine 0.7 mg/dL (0.8-1.3) L 12/03/20 12:59 Estimated GFR > 60 ml/min 12/03/20 12:59 BUN/Creatinine Ratio 14 % 12/03/20 12:59 Glucose 106 mg/dL (75-100) H 12/03/20 12:59 POC Glucose 188 mg/dL (70-105) H 12/02/20 21:59 Hemoglobin A1c 6.8 % (4-6) H 12/03/20 09:38 Lactic Acid 1.60 mmol/L (0.7-2.0) 12/02/20 13:23 Calcium 8.5 mg/dL (8.4-10.2) 12/03/20 12:59 Ferritin 1627.0 ng/mL (30.0-300.0) H 12/02/20 12:19 Total Bilirubin 0.30 mg/dL (0.1-1.2) 12/04/20 05:50 Direct Bilirubin < 0.2 mg/dL (0-0.2) 12/04/20 05:50 Indirect Bilirubin 0.1 mg/dL 12/04/20 05:50 AST 49 units/L (5-40) H 12/04/20 05:50 ALT 78 units/L (7-56) H 12/04/20 05:50 Alkaline Phosphatase 88 units/L (35-129) 12/04/20 05:50 Lactate Dehydrogenase 495 units/L (91-180) H 12/02/20 12:19 Troponin T < 0.010 ng/mL (0.00-0.029) 12/02/20 13:23 C-Reactive Protein 8.30 mg/dL (0.00-1.30) H 12/02/20 12:19 Total Protein 6.6 g/dL (6.3-8.2) 12/04/20 05:50 Albumin 3.4 g/dL (3.9-5) L 12/04/20 05:50 Albumin/Globulin Ratio 1.1 % 12/04/20 05:50 Procalcitonin 0.18 ng/mL (<0.15) 12/02/20 12:19 Urine Color Yellow (Yellow) 12/02/20 14:44 Urine Turbidity Clear (Clear) 12/02/20 14:44 Urine pH 6.0 (5.0-7.0) 12/02/20 14:44 Ur Specific [place] 1.015 (1.003-1.030) 12/02/20 14:44 Urine Protein 30 mg/dl mg/dL (Negative) 12/02/20 14:44 Urine Glucose (UA) Neg mg/dL (Negative) 12/02/20 14:44 Urine Ketones Neg mg/dL (Negative) 12/02/20 14:44 Urine Blood Neg (Negative) 12/02/20 14:44 Urine Nitrite Neg (Negative) 12/02/20 14:44 Urine Bilirubin Neg (Negative) 12/02/20 14:44 Urine Urobilinogen 2.0 mg/dL (<2.0) 12/02/20 14:44 Ur Leukocyte Esterase Neg (Negative) 12/02/20 14:44 Urine WBC (Auto) 1.0 /HPF (0.0-6.0) 12/02/20 14:44 Urine RBC (Auto) 0.0 /HPF (0.0-6.0) 12/02/20 14:44 Coronavirus (PCR) Positive (Negative) A 12/03/20 Unknown Microbiology: Microbiology 12/02/20 12:19 Peripheral/Venous Blood Culture - Preliminary NO GROWTH AFTER 24 HOURS 12/02/20 12:19 Peripheral/Venous Blood Culture - Preliminary NO GROWTH AFTER 24 HOURS Ramirez/IV: Voiding Method Toilet IV Catheter Type [Right Peripheral IV Antecubital] Active Medications - Current Medications Current Medications: Generic Name Dose Route Start Last Admin Trade Name Freq PRN Reason Stop Dose Admin Acetaminophen 650 mg 12/02/20 23:43 Acetaminophen 325 Mg Tab PO Q4H PRN Pain MILD(1-3)/Fever >100.5/BAKER Ascorbic Acid 1,000 mg 12/02/20 23:45 12/03/20 22:35 Ascorbic Acid 500 Mg Tab PO 1,000 mg BID GABRIELA Administration Azithromycin 500 mg 12/04/20 10:00 Azithromycin 250 Mg Tab PO 12/06/20 10:01 QDAY GABRIELA Cholecalciferol 5,000 unit 12/04/20 10:00 Cholecalciferol (Vit D3) 5,000 Unit Tab PO DAILY GABRIELA Dexamethasone 6 mg 12/04/20 10:00 Dexamethasone 4 Mg Tab PO 12/11/20 12:00 DAILY GABRIELA Enoxaparin Sodium 110 mg 12/03/20 07:00 12/03/20 22:35 Enoxaparin 120 Mg/0.8 Ml Inj SUB-Q 110 mg Q12H GABRIELA Administration Protocol Famotidine 20 mg 12/03/20 10:00 12/03/20 22:35 Famotidine 20 Mg Tab PO 20 mg BID GABRIELA Administration Guaifenesin 600 mg 12/03/20 18:00 12/03/20 22:35 Guaifenesin Er 600 Mg Tab PO 600 mg BID GABRIELA Administration Hydromorphone HCl 0.5 mg 12/02/20 23:43 Hydromorphone 1 Mg/1 Ml Inj IV Q3H PRN Pain , Severe (7-10) Ceftriaxone Sodium 2 gm in 100 mls @ 200 mls/hr 12/03/20 10:00 12/03/20 10:42 Rocephin/Ns 2 Gm/100 Ml IV 12/07/20 12:00 200 mls/hr Q24HR GABRIELA Administration Protocol Loperamide HCl 2 mg 12/03/20 16:00 Loperamide 2 Mg Cap PO Q2H PRN Diarrhea Metoclopramide HCl 10 mg 12/02/20 23:43 Metoclopramide 10 Mg/2 Ml Inj IV Q6H PRN Nausea And Vomiting Ondansetron HCl 4 mg 12/02/20 23:43 Ondansetron 4 Mg/2 Ml Inj IV Q8H PRN Nausea And Vomiting Oxycodone/Acetaminophen 1 tab 12/02/20 23:43 Oxycodone /Acetaminophen 5-325mg Tab PO Q6H PRN Pain, Moderate (4-6) Pseudoephedrine/Acetam/Chlorphenir 10 ml 12/02/20 22:06 12/03/20 14:10 Guaifenesin/Codeine 100-10mg Oral Liqd 5 Ml PO 10 ml Q8HR PRN Administration Cough Sodium Chloride 10 ml 12/03/20 10:00 12/03/20 22:01 Sodium Chloride 0.9% 10 Ml Flush Syringe IV 10 ml BID GABRIELA Administration Sodium Chloride 10 ml 12/02/20 23:43 Sodium Chloride 0.9% 10 Ml Flush Syringe IV PRN PRN LINE FLUSH Zinc Sulfate 220 mg 12/02/20 23:45 12/03/20 22:35 Zinc Sulfate 220 Mg Cap PO 220 mg BID GABRIELA Administration Zolpidem Tartrate 5 mg 12/02/20 22:07 12/03/20 22:36 Zolpidem 5 Mg Tab PO 5 mg QHS PRN Administration Sleep Nutrition/Malnutrition Assess - Dietary Evaluation Nutrition/Malnutrition Findings: Nutrition Notes Start: 12/03/20 15:27 Freq: Status: Active Protocol: Document 12/03/20 15:27 (Rec: 12/03/20 15:36 [id number]) Nutrition Notes Need for Assessment generated from: MD Order,MST Initial or Follow up Assessment Current Diagnosis Diabetes Other Pertinent Diagnosis PNS, acure respiratory failure , GERD, COVID(+) Current Diet Consistent CHO Labs/Tests Reviewed Pertinent Medications Decadron Height 5 ft 11 in Weight 109.316 kg Usual Body Weight 109.54 kg [place] Body Weight (kg) 78.18 BMI 33.6 Intake Prior to Admission Poor Weight Status Obese Subjective/Other Information RN screen for MST and skin risk. Dylan score 23. Pt reports only eating bites of meals for 7 days [employer]. He states his appetite has improved but doesn't like the food choices here. Food prefrences noted. Pt reports eating 25% of meals. Burn Absent Trauma Absent GI Symptoms None Current % PO Poor (25-49%) Minimum of two criteria No Energy Intake (non-severe) <75% Estimated Energy Requirement >7 days #1 Nutrition Diagnosis Inadequate oral intake Etiology COVID-19, food prefrences As Evidenced by Signs and Symptoms pt eating 25% of meals Is patient on ventilator? No Is Patient Ambulatory and/or Out of Bed Yes REE-([place]-St. Jeor-ambulatory/OOB) [ 2593.877 NUTR.[id number]] Kcal/Kg value to use for calculation 19 Approximate Energy Requirements Using 7 kcal/Kg Calculation Used for Recommendations Kcal/kg Additional Notes Protein: 75-94g (0.8-1g/kg AdjBW: 94kg) Fluid: 1ml/kcal Nutrition Intervention Change Diet Order: Continue Goal #1 Meet at least 75% of protein and energy needs via PO intakes Anticipated Discharge Needs: Consistent CHO Follow-Up By: 12/05/20 Additional Comments FU for intakes
[2020-12-04] MEDS: guaiFENesin ER 600 MG TAB PO SCH ×2 (09:15→22:11)
[2020-12-04] MEDS: AZITHROMYCIN 250 MG TAB PO SCH (09:16)
[2020-12-04] MEDS: ZINC SULFATE 220 MG CAP PO SCH ×2 (09:16→22:11)
[2020-12-04] MEDS: DEXAMETHASONE 4 MG TAB PO SCH (09:16)
[2020-12-04] MEDS: ASCORBIC ACID 500 MG TAB PO SCH ×2 (09:16→22:11)
[2020-12-04] MEDS: FAMOTIDINE 20 MG TAB PO SCH ×2 (09:16→22:11)
[2020-12-04] MEDS: ENOXAPARIN 120 MG/0.8 ML INJ SUB-Q SCH ×2 (09:17→22:10)
[2020-12-04] MEDS: CHOLECALCIFEROL (VIT D3) 5,000 UNIT TAB PO SCH (09:17)
[2020-12-04] MEDS: cefTRIAXone/NS 2 GM/100 ML 2 GM/100 ML BAG IV SCH (09:18)
[2020-12-04 09:50] LABS: C-Reactive Protein 5.2 mg/dL (0.00-1.30)
[2020-12-04] MEDS: ONDANSETRON 4 MG/2 ML INJ IV PRN (11:26)
--- NOTE | 2020-12-04 13:25 | Vascular Lab Report ---
DUPLEX DOPPLER LOWER EXTREMITY VEINS, BILATERAL INDICATION / CLINICAL INFORMATION: Elevated D-dimers/evaluate for DVT. TECHNIQUE: Duplex doppler imaging was performed through the veins of both lower extremities using venous allie lala and other maneuvers. COMPARISON: None available. FINDINGS: RIGHT COMMON FEMORAL VEIN: Negative. RIGHT FEMORAL VEIN: Negative. RIGHT POPLITEAL VEIN: Negative. RIGHT CALF VEINS: Negative. LEFT COMMON FEMORAL VEIN: Negative. LEFT FEMORAL VEIN: Negative. LEFT POPLITEAL VEIN: Negative. LEFT CALF VEINS: Negative. ADDITIONAL FINDINGS: None. IMPRESSION: 1. No sonographic evidence for DVT in either lower extremity. Signer Name: Mac Buck MD Signed: 12/04/2020 1:21 PM Workstation Name: [id number]
--- NOTE | 2020-12-04 14:21 | Consultation ---
History of Present Illness - Reason for Consult Consult date: 12/04/20 COVID Requesting physician: SADE ROSS - History of Present Illness The patient is a 45-year-old male with borderline diabetes was admitted to the hospital with fever, chills, body aches and fatigue going on for the last 7 days. Patient tested positive for COVID-19 as an outpatient on 11/29/2020. Due to worsening shortness of breath, patient came to the emergency room. Chest x-ray showed bilateral pneumonia. Infectious diseases was consulted for additional evaluation. Has been having low-grade fevers here. Labs reviewed and show D-dimer 582, ferritin 1465, transaminitis, CRP 5.2. Procalcitonin 0.18. Not requiring oxygen. D/W RN. Review of Systems: General: fever, chills, bodyaches HEENT: no new visual disturbance Respiratory: cough, shortness of breath Cardiovascular: No chest pain, syncope Gastrointestinal: No nausea, vomiting or diarrhea Genitourinary: No dysuria or hematuria Musculoskeletal: No new or worsening neck pain or back pain Neurologic: No headaches, seizures Hematologic: No easy bruising or bleeding Endocrine: No night sweats or acute weight loss Skin: negative for rash, jaundice Psychiatric: No suicidal or homicidal ideation Medications and Allergies Allergies Allergy/AdvReac Type Severity Reaction Status Date / Time No Known Allergies Allergy Unverified 04/05/18 21:21 Home Medications Medication Instructions Recorded Confirmed Last Taken Type HYDROcodone/ACETAMINOPHEN [[place] 1 each PO Q6HR PRN #10 tablet 04/06/18 12/03/20 Unknown Rx 5-325 Tablet] Omeprazole 40 mg PO DAILY 12/03/20 12/03/20 Unknown History Active Meds: Active Medications Acetaminophen (Acetaminophen 325 Mg Tab) 650 mg PO Q4H PRN PRN Reason: Pain MILD(1-3)/Fever >100.5/BAKER Ascorbic Acid (Ascorbic Acid 500 Mg Tab) 1,000 mg PO BID [facility] Last Admin: 12/04/20 09:16 Dose: 1,000 mg Documented by: Azithromycin (Azithromycin 250 Mg Tab) 500 mg PO QDAY [facility] Stop: 12/06/20 10:01 Last Admin: 12/04/20 09:16 Dose: 500 mg Documented by: Cholecalciferol (Cholecalciferol (Vit D3) 5,000 Unit Tab) 5,000 unit PO DAILY [facility] Last Admin: 12/04/20 09:17 Dose: 5,000 unit Documented by: Dexamethasone (Dexamethasone 4 Mg Tab) 6 mg PO DAILY [facility] Stop: 12/11/20 12:00 Last Admin: 12/04/20 09:16 Dose: 6 mg Documented by: Enoxaparin Sodium (Enoxaparin 120 Mg/0.8 Ml Inj) 110 mg SUB-Q Q12H [facility]; Protocol Last Admin: 12/04/20 09:17 Dose: 110 mg Documented by: Famotidine (Famotidine 20 Mg Tab) 20 mg PO BID [facility] Last Admin: 12/04/20 09:16 Dose: 20 mg Documented by: Guaifenesin (Guaifenesin Er 600 Mg Tab) 600 mg PO BID [facility] Last Admin: 12/04/20 09:15 Dose: 600 mg Documented by: Hydromorphone HCl (Hydromorphone 1 Mg/1 Ml Inj) 0.5 mg IV Q3H PRN PRN Reason: Pain , Severe (7-10) Ceftriaxone Sodium (Rocephin/Ns 2 Gm/100 Ml) 2 gm in 100 mls @ 200 mls/hr IV Q24HR [facility]; Protocol Stop: 12/07/20 12:00 Last Admin: 12/04/20 09:18 Dose: 200 mls/hr Documented by: Loperamide HCl (Loperamide 2 Mg Cap) 2 mg PO Q2H PRN PRN Reason: Diarrhea Metoclopramide HCl (Metoclopramide 10 Mg/2 Ml Inj) 10 mg IV Q6H PRN PRN Reason: Nausea And Vomiting Ondansetron HCl (Ondansetron 4 Mg/2 Ml Inj) 4 mg IV Q8H PRN PRN Reason: Nausea And Vomiting Last Admin: 12/04/20 11:26 Dose: 4 mg Documented by: Oxycodone/Acetaminophen (Oxycodone /Acetaminophen 5-325mg Tab) 1 tab PO Q6H PRN PRN Reason: Pain, Moderate (4-6) Last Admin: 12/04/20 12:59 Dose: 1 tab Documented by: Pseudoephedrine/Acetam/Chlorphenir (Guaifenesin/Codeine 100-10mg Oral Liqd 5 Ml) 10 ml PO Q8HR PRN PRN Reason: Cough Last Admin: 12/03/20 14:10 Dose: 10 ml Documented by: Sodium Chloride (Sodium Chloride 0.9% 10 Ml Flush Syringe) 10 ml IV BID [facility] Last Admin: 12/04/20 09:18 Dose: 10 ml Documented by: Sodium Chloride (Sodium Chloride 0.9% 10 Ml Flush Syringe) 10 ml IV PRN PRN PRN Reason: LINE FLUSH Zinc Sulfate (Zinc Sulfate 220 Mg Cap) 220 mg PO BID [facility] Last Admin: 12/04/20 09:16 Dose: 220 mg Documented by: Zolpidem Tartrate (Zolpidem 5 Mg Tab) 5 mg PO QHS PRN PRN Reason: Sleep Last Admin: 12/03/20 22:36 Dose: 5 mg Documented by: Physical Examination - Physical Exam Narrative exam: Physical Exam: Constitutional: Alert, cooperative. No acute distress Head, Ears, Nose: Normocephalic, atraumatic. External ears, nose normal Eyes: subconjunctival hemorrhage. No icterus. No ptosis. Neck: Supple, no meningeal signs Oral: deferred due to COVID Cardiovascular: S1, S2 normal. Respiratory: Good air entry, clear to auscultation bilaterally GI: Soft, non-tender; bowel sounds normal. No peritoneal signs Musculoskeletal: No pedal edema, no cyanosis. Skin: No rash or abscess Hem/Lymphatic: No palpable cervical or supraclavicular nodes. No lymphangitis Psych: Mood ok. Affect normal Neurological: Awake, alert, oriented. No gross abnormality - Constitutional Vitals: Vital Signs Temp Pulse Resp BP Pulse Ox 99.9 F H 80 20 120/45 93 12/04/20 05:43 12/04/20 05:43 12/04/20 05:43 12/04/20 05:43 12/04/20 08:31 Temperature -Last 24 Hours Temperature 99.9 F Temperature 99.1 F Temperature 98.8 F Results - Labs CBC & Chem 7: 12/03/20 09:38 12/03/20 12:59 Labs: Abnormal lab results 12/03/20 12/04/20 12/04/20 Range/Units Unknown 05:50 09:07 D-Dimer 582.02 H (0-234) ng/mlDDU Ferritin (30.0-300.0) ng/mL AST 49 H (5-40) units/L ALT 78 H (7-56) units/L Lactate Dehydrogenase (91-180) units/L C-Reactive Protein (0.00-1.30) mg/dL Albumin 3.4 L (3.9-5) g/dL Coronavirus (PCR) Positive A (Negative) 12/04/20 12/04/20 Range/Units 09:07 09:07 D-Dimer (0-234) ng/mlDDU Ferritin 1465.0 H (30.0-300.0) ng/mL AST (5-40) units/L ALT (7-56) units/L Lactate Dehydrogenase 493 H (91-180) units/L C-Reactive Protein 5.20 H (0.00-1.30) mg/dL Albumin (3.9-5) g/dL Coronavirus (PCR) (Negative) - Imaging and Cardiology Chest x-ray: report reviewed, image reviewed (b/l pneumonia) CT scan - chest: report reviewed, image reviewed (no PE, b/l GGO) Assessment and Plan Cultures: SARS CoV2 PCR: Positive A/P: 45-year-old male with borderline diabetes: #Bilateral pneumonia: Secondary to COVID-19. No PE on CTA. #Transaminitis: Secondary to COVID-19 #Diabetes mellitus type 2 Recs: -patient is currently not requiring any oxygen. D/W RN, to get ambulatory sats, if he gets hypoxic, would start him on Remdesivir -prophylactic anticoagulation based on d-dimer per hospital protocol -trend ferritin, LDH, d-dimer, CRP every 2-3 days for risk stratification and to assess disease progression Mirna Benites MD, FACP [facility] O: [phone] F: [phone]
[2020-12-05] MEDS: ENOXAPARIN 120 MG/0.8 ML INJ SUB-Q SCH ×2 (06:27→18:15)
[2020-12-05] MEDS: ASCORBIC ACID 500 MG TAB PO SCH ×2 (09:00→22:29)
[2020-12-05] MEDS: cefTRIAXone/NS 2 GM/100 ML 2 GM/100 ML BAG IV SCH (09:10)
[2020-12-05] MEDS: PANTOPRAZOLE 40 MG TAB PO SCH (09:10)
[2020-12-05] MEDS: ZINC SULFATE 220 MG CAP PO SCH (09:10)
[2020-12-05] MEDS: DEXAMETHASONE 4 MG TAB PO SCH (09:11)
[2020-12-05] MEDS: CHOLECALCIFEROL (VIT D3) 5,000 UNIT TAB PO SCH (09:12)
[2020-12-05] MEDS: AZITHROMYCIN 250 MG TAB PO SCH (09:12)
[2020-12-05] MEDS: guaiFENesin ER 600 MG TAB PO SCH ×2 (09:12→22:28)
[2020-12-05] MEDS: guaiFENesin/CODEINE 100-10MG ORAL LIQD 5 ML PO PRN (09:43)
[2020-12-05] MEDS ORDERED: NON-FORMULARY EACH (Omeprazole [Omeprazole] 40 MG Capsule.Dr) PO SCH (10:00)
--- NOTE | 2020-12-05 13:50 | Progress Note ---
Assessment and Plan Cultures: SARS CoV2 PCR: Positive Blood culture: no growth. A/P: 45-year-old male with borderline diabetes: #Bilateral pneumonia: Secondary to COVID-19. No PE on CTA. #Acute hypoxic respiratory failure: now on oxygen. #Transaminitis: Secondary to COVID-19 #Diabetes mellitus type 2 Recs: -Hypoxic on ambulation, start Remdesivir. D/W F. Azad, LUMBER CHECKER -continue steroids: Decadron x 10 days -procal is low, abx discontinued -prophylactic anticoagulation based on d-dimer per hospital protocol -trend ferritin, LDH, d-dimer, CRP every 2-3 days for risk stratification and to assess disease progression Mirna Benites MD, FACP [facility] ([facility] O: [phone] F: [phone] Subjective Date of service: 12/05/20 Interval history: Afebrile. Hypoxic on ambulation. Objective - Exam Narrative Exam: Physical Exam: Constitutional: Alert, cooperative. No acute distress Head, Ears, Nose: Normocephalic, atraumatic. External ears, nose normal Eyes: subconjunctival hemorrhage. No icterus. No ptosis. Neck: Supple, no meningeal signs Oral: deferred due to COVID Cardiovascular: S1, S2 normal. Respiratory: Good air entry, clear to auscultation bilaterally GI: Soft, non-tender; bowel sounds normal. No peritoneal signs Musculoskeletal: No pedal edema, no cyanosis. Skin: No rash or abscess Hem/Lymphatic: No palpable cervical or supraclavicular nodes. No lymphangitis Psych: Mood ok. Affect normal Neurological: Awake, alert, oriented. No gross abnormality - Constitutional Vitals: Vital Signs Temp Pulse Resp BP Pulse Ox 98.3 F 70 20 116/63 100 12/05/20 11:09 12/05/20 11:09 12/05/20 11:09 12/05/20 11:09 12/05/20 11:09 Temperature -Last 24 Hours Temperature 98.3 F Temperature 98.2 F Temperature 98.1 F Temperature 97.5 F - Labs CBC & Chem 7: 12/03/20 09:38 12/03/20 12:59
[2020-12-05] MEDS ORDERED: REMDESIVIR 200 MG in SODIUM CHLORIDE 0.9% 250ML 250 ML IV ONE (14:00)
[2020-12-05] MEDS ORDERED: REMDESIVIR 100 MG VIAL IV ONE (14:00)
[2020-12-05] MEDS: SODIUM CHLORIDE 0.9% 50 ML IVPB IV SCH (14:54)
[2020-12-05] MEDS: HYDROcodone/HOMATROPINE 5-1.5MG /5 ML ORAL LIQD UNIT DOSE PO PRN (16:48)
--- NOTE | 2020-12-05 18:46 | Progress Note ---
Assessment and Plan Assessment and plan: COVID-19 pneumonia -12/02 CXR shows faint bilateral peripheral pulmonary opacities which are compatible with infectious process including viral etiologies -12/02 CTA chest shows diffuse bilateral peripheral groundglass opacities consistent with atypical viral pneumonia, no pulmonary embolism -Patient tested positive for COVID-19 infection on 11/29/2020 at outside facility -12/03 COVID-19 PCR positive -S/p azithromycin and Solu-Medrol in the emergency department -Azithromycin 500 mg p.o. daily for 3 doses, ceftriaxone 2 g per 24 hours IV which were discontinued given normal procalcitonin -12/02 procalcitonin 0.18 -SPO2 monitoring -Pulmonary hygiene -Supplemental oxygen as needed -OOB 3 times daily -Anticoagulation per protocol -Trend Covid inflammatory markers for risk stratification -Obtain ambulatory SPO2 prior to discharge -Infectious disease consulted, appreciate recommendations -Vitamin C, zinc, vitamin D -12/02 blood cultures x2 no growth to date -12/05 initiated on remdesivir therapy for 5 days; monitor LFTs Acute hypoxemic respiratory failure -SPO2 on arrival to the emergency department was low -Dexamethasone for 10 days -SPO2 monitoring -Pulmonary hygiene -Supplemental oxygen as needed -Obtain ambulatory SPO2 prior to discharge Elevated D-dimer -12/02 D-dimer 721 -12/02 CTA chest negative for pulmonary embolism -12/04 bilateral lower extremity duplex ultrasound shows no acute DVT or SVT -Anticoagulation per protocol -Trend D-dimer Transaminitis -Presented with AST 94, ALT 125, alk phos 104 with T bili 0.30 -12/03 LFTs: T bili 0.3, AST 67, ALT 108 -12/04 LFTs: T bili 0. 3, T bili less than 0.2, indirect bili 0.1, AST 49, ALT 78, alk phos 88 -Likely secondary to COVID-19 infection -Trend LFTs Diabetes mellitus -Patient states that he has "borderline diabetes" -12/03 hemoglobin A1c 6.8 -CC diet -Accu-Cheks AC at bedtime -SSI Tobacco abuse -Smoking cessation education completed -Consider transdermal nicotine patch to aid in cessation DVT prophylaxis -Lovenox subcu -SCDs to bilateral from swelling bed Hyponatremia, resolved -12/02 presented with a sodium of 132 -Trend BMP -12/03 sodium 138 Hypochloremia, resolved -12/02 chloride 97.5 -2 chloride 103.9 -Trend BMP History Interval history: This is a 45-year-old male with borderline diabetes, GERD and current tobacco abuse (half a pack per day) who presented to the emergency department on 12/02 for fevers, chills, diaphoresis, body aches and fatigue over the past 7 days. Patient tested positive for COVID-19 and November 29, 2020 and says he was exposed at work. Work-up in the emergency department included a CXR which showed faint bilateral peripheral pulmonary opacities which are compatible with infectious process including viral etiologies, elevated D-dimer at 721, CTA ches t showed no evidence of pulmonary embolism and diffuse bilateral peripheral groundglass opacities consistent with atypical or viral pneumonia, hyponatremia at 132, hypochloremia as 97.5, hyperglycemia 188, transaminitis (AST 94, ALT 125, alk phos 104) and elevated COVID-19 inflammatory markers. Patient was admitted to the hospital service and made a COVID-19 PUI. Infectious disease was consulted. 2: COVID-19 PCR positive, room air, symptomatically better 6-minute walk test SPO2 89% on room air. 2/2: Patient had an episode of severe nausea, brief hypotension and soiled himself with large bowel movement. Patient did not have loss of consciousness, symptoms resolved and the nurse helped him to the bed 2/3: This morning at the time my examination patient seems to be saddened and expresses frustration regarding the care that he has received. Patient is ambulatory SPO2 this morning was in the 80s which qualified him for home oxygen. Given that the patient is currently on nasal cannula infectious disease has opted to which start the patient on remdesivir therapy. Hospitalist Physical - Constitutional Vitals: Temp Pulse Resp BP Pulse Ox 97.8 F 51 L 20 124/57 2 L 12/05/20 17:12/05/20 17:02 12/05/20 17:12/05/20 17:12/05/20 17:02 General appearance: Present: mild distress, well-nourished, obese - EENT Eyes: Present: PERRL, EOM intact ENT: hearing intact, clear oral mucosa, dentition normal - Neck Neck: Present: normal ROM - Respiratory Respiratory effort: normal - Cardiovascular Rhythm: regular - Extremities Extremities: no ischemia, pulses intact, pulses symmetrical, No edema, normal temperature, normal color, Full ROM Peripheral Pulses: within normal limits - Abdominal General gastrointestinal: soft, non-tender, non-distended - Integumentary Integumentary: Present: clear, warm, dry - Psychiatric Psychiatric: cooperative - Neurologic Neurologic: CNII-XII intact, no focal deficits, moves all extremities - Allied Health Allied health notes reviewed: nursing, RT, social work, case management HEART Score - HEART Score EKG: Normal Age: 45-65 Risk factors: 1-2 risk factors Troponin: Troponin T < 0.010 ng/mL (0.00-0.029) 12/02/20 13:23 Troponin: < normal limit - Critical Actions Critical Actions: 0-3 pts:0.9-1.7%risk of adverse cardiac event.Candidate for discharge Results - Labs CBC & Chem 7: 12/03/20 09:38 12/03/20 12:59 Labs: Laboratory Last Values WBC 6.3 K/mm3 (4.5-11.0) 12/03/20 09:38 RBC 5.81 M/mm3 (3.65-5.03) H 12/03/20 09:38 Hgb 14.8 gm/dl (11.8-15.2) 12/03/20 09:38 Hct 43.5 % (35.5-45.6) 12/03/20 09:38 MCV 75 fl (84-94) L 12/03/20 09:38 MCH 26 pg (28-32) L 12/03/20 09:38 MCHC 34 % (32-34) 12/03/20 09:38 RDW 15.4 % (13.2-15.2) H 12/03/20 09:38 Plt Count 272 K/mm3 (140-440) 12/03/20 09:38 Lymph % (Auto) 15.0 % (13.4-35.0) 12/03/20 09:38 [place] % (Auto) 7.5 % (0.0-7.3) H 12/03/20 09:38 Eos % (Auto) 0.0 % (0.0-4.3) 12/03/20 09:38 Baso % (Auto) 0.3 % (0.0-1.8) 12/03/20 09:38 Lymph # (Auto) 0.9 K/mm3 (1.2-5.4) L 12/03/20 09:38 [place] # (Auto) 0.5 K/mm3 (0.0-0.8) 12/03/20 09:38 Eos # (Auto) 0.0 K/mm3 (0.0-0.4) 12/03/20 09:38 Baso # (Auto) 0.0 K/mm3 (0.0-0.1) 12/03/20 09:38 Seg Neutrophils % 77.2 % (40.0-70.0) H 12/03/20 09:38 Seg Neutrophils # 4.8 K/mm3 (1.8-7.7) 12/03/20 09:38 D-Dimer 582.02 ng/mlDDU (0-234) H 12/04/20 09:07 Sodium 138 mmol/L (137-145) 12/03/20 12:59 Potassium 4.3 mmol/L (3.6-5.0) 12/03/20 12:59 Chloride 103.4 mmol/L (98-107) 12/03/20 12:59 Carbon Dioxide 27 mmol/L (22-30) 12/03/20 12:59 Anion Gap 12 mmol/L 12/03/20 12:59 BUN 10 mg/dL (9-20) 12/03/20 12:59 Creatinine 0.7 mg/dL (0.8-1.3) L 12/03/20 12:59 Estimated GFR > 60 ml/min 12/03/20 12:59 BUN/Creatinine Ratio 14 % 12/03/20 12:59 Glucose 106 mg/dL (75-100) H 12/03/20 12:59 POC Glucose 188 mg/dL (70-105) H 12/02/20 21:59 Hemoglobin A1c 6.8 % (4-6) H 12/03/20 09:38 Lactic Acid 1.60 mmol/L (0.7-2.0) 12/02/20 13:23 Calcium 8.5 mg/dL (8.4-10.2) 12/03/20 12:59 Ferritin 1465.0 ng/mL (30.0-300.0) H 12/04/20 09:07 Total Bilirubin 0.30 mg/dL (0.1-1.2) 12/04/20 05:50 Direct Bilirubin < 0.2 mg/dL (0-0.2) 12/04/20 05:50 Indirect Bilirubin 0.1 mg/dL 12/04/20 05:50 AST 49 units/L (5-40) H 12/04/20 05:50 ALT 78 units/L (7-56) H 12/04/20 05:50 Alkaline Phosphatase 88 units/L (35-129) 12/04/20 05:50 Lactate Dehydrogenase 493 units/L (91-180) H 12/04/20 09:07 Troponin T < 0.010 ng/mL (0.00-0.029) 12/02/20 13:23 C-Reactive Protein 5.20 mg/dL (0.00-1.30) H 12/04/20 09:07 Total Protein 6.6 g/dL (6.3-8.2) 12/04/20 05:50 Albumin 3.4 g/dL (3.9-5) L 12/04/20 05:50 Albumin/Globulin Ratio 1.1 % 12/04/20 05:50 Procalcitonin 0.18 ng/mL (<0.15) 12/02/20 12:19 Urine Color Yellow (Yellow) 12/02/20 14:44 Urine Turbidity Clear (Clear) 12/02/20 14:44 Urine pH 6.0 (5.0-7.0) 12/02/20 14:44 Ur Specific [place] 1.015 (1.003-1.030) 12/02/20 14:44 Urine Protein 30 mg/dl mg/dL (Negative) 12/02/20 14:44 Urine Glucose (UA) Neg mg/dL (Negative) 12/02/20 14:44 Urine Ketones Neg mg/dL (Negative) 12/02/20 14:44 Urine Blood Neg (Negative) 12/02/20 14:44 Urine Nitrite Neg (Negative) 12/02/20 14:44 Urine Bilirubin Neg (Negative) 12/02/20 14:44 Urine Urobilinogen 2.0 mg/dL (<2.0) 12/02/20 14:44 Ur Leukocyte Esterase Neg (Negative) 12/02/20 14:44 Urine WBC (Auto) 1.0 /HPF (0.0-6.0) 12/02/20 14:44 Urine RBC (Auto) 0.0 /HPF (0.0-6.0) 12/02/20 14:44 Coronavirus (PCR) Positive (Negative) A 12/03/20 Unknown Microbiology: Microbiology 12/02/20 12:19 Peripheral/Venous Blood Culture - Preliminary NO GROWTH AFTER 72 HOURS 12/02/20 12:19 Peripheral/Venous Blood Culture - Preliminary NO GROWTH AFTER 72 HOURS Ramirez/IV: Voiding Method Bedside Commode IV Catheter Type [Right Peripheral IV Antecubital] Active Medications - Current Medications Current Medications: Generic Name Dose Route Start Last Admin Trade Name Freq PRN Reason Stop Dose Admin Acetaminophen 650 mg 12/02/20 23:43 Acetaminophen 325 Mg Tab PO Q4H PRN Pain MILD(1-3)/Fever >100.5/BAKER Ascorbic Acid 1,000 mg 12/02/20 23:45 12/05/20 09:00 Ascorbic Acid 500 Mg Tab PO 1,000 mg BID GABRIELA Administration Cholecalciferol 5,000 unit 12/04/20 10:00 12/05/20 09:12 Cholecalciferol (Vit D3) 5,000 Unit Tab PO 5,000 unit DAILY GABRIELA Administration Dexamethasone 6 mg 12/04/20 10:00 12/05/20 09:11 Dexamethasone 4 Mg Tab PO 12/11/20 12:00 6 mg DAILY GABRIELA Administration Enoxaparin Sodium 110 mg 12/03/20 07:00 12/05/20 18:15 Enoxaparin 120 Mg/0.8 Ml Inj SUB-Q 110 mg Q12H GABRIELA Administration Protocol Guaifenesin 600 mg 12/03/20 18:00 12/05/20 09:12 Guaifenesin Er 600 Mg Tab PO Not Given BID GABRIELA Hydrocodone Bit/Homatropine Methylb 10 ml 12/05/20 15:30 12/05/20 16:48 Hydrocodone/Homatropine 5-1.5mg /5 Ml Oral Liqd Unit Dose PO 10 ml Q8HR PRN Administration Cough Hydromorphone HCl 0.5 mg 12/02/20 23:43 Hydromorphone 1 Mg/1 Ml Inj IV Q3H PRN Pain , Severe (7-10) REMDESIVIR 100 mg/ Sodium 250 mls @ 500 mls/hr 12/06/20 21:00 Chloride IV 12/09/20 21:29 Q24HR@2100 GABRIELA Loperamide HCl 2 mg 12/03/20 16:00 Loperamide 2 Mg Cap PO Q2H PRN Diarrhea Melatonin 5 mg 12/05/20 22:00 Melatonin 5 Mg Tab PO QHS PRN Sleep Metoclopramide HCl 10 mg 12/02/20 23:43 Metoclopramide 10 Mg/2 Ml Inj IV Q6H PRN Nausea And Vomiting Ondansetron HCl 4 mg 12/02/20 23:43 12/04/20 11:26 Ondansetron 4 Mg/2 Ml Inj IV 4 mg Q8H PRN Administration Nausea And Vomiting Oxycodone/Acetaminophen 1 tab 12/02/20 23:43 12/04/20 12:59 Oxycodone /Acetaminophen 5-325mg Tab PO 1 tab Q6H PRN Administration Pain, Moderate (4-6) Pantoprazole Sodium 40 mg 12/05/20 10:00 12/05/20 09:10 Pantoprazole 40 Mg Tab PO 40 mg DAILY GABRIELA Administration Sodium Chloride 10 ml 12/03/20 10:00 12/05/20 09:11 Sodium Chloride 0.9% 10 Ml Flush Syringe IV 10 ml BID GABRIELA Administration Sodium Chloride 10 ml 12/02/20 23:43 Sodium Chloride 0.9% 10 Ml Flush Syringe IV PRN PRN LINE FLUSH Sodium Chloride 50 ml 12/05/20 14:30 12/05/20 14:54 Sodium Chloride 0.9% 50 Ml Ivpb IV 12/09/20 21:01 50 ml Q24HR@2100 GABRIELA Administration Zinc Sulfate 220 mg 12/06/20 10:00 Zinc Sulfate 220 Mg Cap PO DAILY GABRIELA Nutrition/Malnutrition Assess - Dietary Evaluation Nutrition/Malnutrition Findings: Nutrition Notes Start: 12/03/20 15:27 Freq: Status: Active Protocol: Document 12/05/20 11:30 AB (Rec: 12/05/20 11:42 AB [id number]) Co-Sign 12/05/20 11:30 LP Nutrition Notes Initial or Follow up Reassessment Current Diagnosis Diabetes Other Pertinent Diagnosis Pneu, acure respiratory failure, GERD, COVID(+) Current Diet Consistent CHO Labs/Tests Reviewed Pertinent Medications Vit D3 Zinc Vit C Height 5 ft 11 in Weight 104.2 kg [place] Body Weight (kg) 78.18 BMI 32.0 Intake Prior to Admission Poor Weight change and time frame 5% wt loss in 2 days Weight Status Obese Subjective/Other Information F/U for intakes. Spoke with pt on phone and is continuing to have loss of appetite but improving. Pt stated a 50% consumption of breakfast today . Pt stated diarrhea that is happening after he ate. Per med list, pt has imodium PRN. Pt states that he would like to try a suppl daily to increase intake. Percent of energy/protein needs met: 58%/70% Burn Absent Trauma Absent GI Symptoms Nausea,Diarrhea Current % PO Fair (50-74%) Minimum of two criteria Yes Energy Intake (non-severe) <75% Estimated Energy Requirement >7 days Interpretation of Weight Loss (severe) >2% in 1 week #2 Nutrition Diagnosis Malnutrition Etiology COVID-19 As Evidenced by Signs and Symptoms < 75% of EER in 7 days, >2% of wt loss in 1 week #1 Nutrition Diagnosis Inadequate oral intake As Evidenced by Signs and Symptoms Pt eating 50% of meals Diagnosis Progress(for reassessment Improved documentation) Is patient on ventilator? No Is Patient Ambulatory and/or Out of Bed Yes REE-([facility]-ambulatory/OOB) [ 2527.369 [id number]] Kcal/Kg value to use for calculation 19 Approximate Energy Requirements Using 1980 kcal/Kg Calculation Used for Recommendations Kcal/kg Additional Notes Protein: 75-94g (0.8-1g/kg AdjBW: 94kg) Fluid: 1ml/kcal Nutrition Intervention Change Diet Order: Continue Add Supplement/Snack (indicate name/kcal Ensure Enlive daily /protein ) Provides kCal: 350 Provides Protein (gm) 20 Goal #1 Meet at least 80% of protein and energy needs via PO and ONS intakes Anticipated Discharge Needs: Consistent CHO Follow-Up By: 12/11/20 Additional Comments F/U for intakes, ONS tolerance , wt changes
[2020-12-05] MEDS: MELATONIN 5 MG TAB PO PRN (22:29)
[2020-12-06] MEDS: HYDROcodone/HOMATROPINE 5-1.5MG /5 ML ORAL LIQD UNIT DOSE PO PRN (06:44)
[2020-12-06 06:55] LABS: Alanine Aminotransferase 48 units/L (7-56); Albumin 3.1 g/dL (3.9-5); Blood Urea Nitrogen 13 mg/dL (9-20); Calcium 8.3 mg/dL (8.4-10.2); Hemolysis Index 3
[2020-12-06 06:56] LABS: BUN/Creatinine Ratio 19
[2020-12-06] MEDS: DEXAMETHASONE 4 MG TAB PO SCH (09:40)
[2020-12-06] MEDS: guaiFENesin ER 600 MG TAB PO SCH ×3 (09:40→21:24)
[2020-12-06] MEDS: PANTOPRAZOLE 40 MG TAB PO SCH (09:41)
[2020-12-06] MEDS: ENOXAPARIN 60 MG/0.6 ML INJ SUB-Q SCH (09:41)
[2020-12-06] MEDS: ASCORBIC ACID 500 MG TAB PO SCH ×2 (09:41→21:24)
[2020-12-06] MEDS: ZINC SULFATE 220 MG CAP PO SCH (09:41)
[2020-12-06] MEDS: CHOLECALCIFEROL (VIT D3) 5,000 UNIT TAB PO SCH (09:42)
--- NOTE | 2020-12-06 11:13 | Progress Note ---
Assessment and Plan Cultures: SARS CoV2 PCR: Positive Blood culture: no growth. A/P: 45-year-old male with borderline diabetes: #Bilateral pneumonia: Secondary to COVID-19. No PE on CTA. #Acute hypoxic respiratory failure: now on oxygen. #Transaminitis: Secondary to COVID-19 #Diabetes mellitus type 2 Recs: -continue Remdesivir, D2 -continue steroids: Decadron x 10 days -prophylactic anticoagulation based on d-dimer per hospital protocol -trend ferritin, LDH, d-dimer, CRP every 2-3 days for risk stratification and to assess disease progression -get ambulatory sats in AM, if cleared, can discharge home, does not need to complete full course of Remdesivir. Mirna Benites MD, FACP [facility] ([facility] O: [phone] F: [phone] Subjective Date of service: 12/06/20 Interval history: Afebrile. On nasal cannula oxygen. Objective - Exam Narrative Exam: Physical Exam: (deferred to minimize transmission risk) reviewed in the chart. - Constitutional Vitals: Vital Signs Temp Pulse Resp BP Pulse Ox 98.2 F 52 L 20 113/49 97 12/06/20 06:37 12/06/20 10:02 12/06/20 10:02 12/06/20 06:37 12/06/20 10:01 Temperature -Last 24 Hours Temperature 98.2 F Temperature 98.0 F Temperature 97.8 F - Labs CBC & Chem 7: 12/03/20 09:38 12/06/20 04:42 Labs: Abnormal lab results 12/06/20 Range/Units 04:42 Carbon Dioxide 33 H (22-30) mmol/L Creatinine 0.7 L (0.8-1.3) mg/dL Glucose 106 H (75-100) mg/dL Calcium 8.3 L (8.4-10.2) mg/dL Albumin 3.1 L (3.9-5) g/dL
[2020-12-06] MEDS: ONDANSETRON 4 MG/2 ML INJ IV PRN (12:08)
--- NOTE | 2020-12-06 16:50 | Progress Note ---
Assessment and Plan Assessment and plan: COVID-19 pneumonia -12/02 CXR shows faint bilateral peripheral pulmonary opacities which are compatible with infectious process including viral etiologies -12/02 CTA chest shows diffuse bilateral peripheral groundglass opacities consistent with atypical viral pneumonia, no pulmonary embolism -Patient tested positive for COVID-19 infection on 11/29/2020 at outside facility -12/03 COVID-19 PCR positive -S/p azithromycin and Solu-Medrol in the emergency department -Azithromycin 500 mg p.o. daily for 3 doses, ceftriaxone 2 g per 24 hours IV which were discontinued given normal procalcitonin -12/02 procalcitonin 0.18 -SPO2 monitoring -Pulmonary hygiene -Supplemental oxygen as needed -OOB 3 times daily -Anticoagulation per protocol -Trend Covid inflammatory markers for risk stratification -Obtain ambulatory SPO2 prior to discharge -Infectious disease consulted, appreciate recommendations -Vitamin C, zinc, vitamin D -12/02 blood cultures x2 no growth to date -12/05 initiated on remdesivir therapy for 5 days; monitor LFTs Acute hypoxemic respiratory failure -SPO2 on arrival to the emergency department was low -Dexamethasone for 10 days -SPO2 monitoring -Pulmonary hygiene -Supplemental oxygen as needed -Obtain ambulatory SPO2 prior to discharge Elevated D-dimer -12/02 D-dimer 721 -12/02 CTA chest negative for pulmonary embolism -12/04 bilateral lower extremity duplex ultrasound shows no acute DVT or SVT -Anticoagulation per protocol -Trend D-dimer Transaminitis -Presented with AST 94, ALT 125, alk phos 104 with T bili 0.30 -12/03 LFTs: T bili 0.3, AST 67, ALT 108 -12/04 LFTs: T bili 0. 3, T bili less than 0.2, indirect bili 0.1, AST 49, ALT 78, alk phos 88 -Likely secondary to COVID-19 infection -Trend LFTs Metabolic alkalosis -12/06 CO2 on BMP is 33 -Trend BMP Diabetes mellitus -Patient states that he has "borderline diabetes" -12/03 hemoglobin A1c 6.8 -CC diet -Accu-Cheks AC at bedtime -SSI Tobacco abuse -Smoking cessation education completed -Consider transdermal nicotine patch to aid in cessation DVT prophylaxis -Lovenox subcu -SCDs to bilateral from swelling bed Hyponatremia, resolved -12/02 presented with a sodium of 132 -Trend BMP -12/03 sodium 138 Hypochloremia, resolved -12/02 chloride 97.5 -12/03 chloride 103.9 -Trend BMP History Interval history: This is a 45-year-old male with borderline diabetes, GERD and current tobacco abuse (half a pack per day) who presented to the emergency department on 12/02 for fevers, chills, diaphoresis, body aches and fatigue over the past 7 days. Patient tested positive for COVID-19 and November 29, 2020 and says he was exposed at work. Work-up in the emergency department included a CXR which showed faint bilateral peripheral pulmonary opacities which are compatible with infectious process including viral etiologies, elevated D-dimer at 721, CTA chest showed no evidence of pulmonary embolism and diffuse bilateral peripheral groundglass opacities consistent with atypical or viral pneumonia, hyponatremia at 132, hypochloremia as 97.5, hyperglycemia 188, transaminitis (AST 94, ALT 125, alk phos 104) and elevated COVID-19 inflammatory markers. Patient was admitted to the hospital service and made a COVID-19 PUI. Infectious disease was consulted. 2: COVID-19 PCR positive, room air, symptomatically better 6-minute walk test SPO2 89% on room air. 22: Patient had an episode of severe nausea, brief hypotension and soiled himself with large bowel movement. Patient did not have loss of consciousness, symptoms resolved and the nurse helped him to the bed 23: This morning at the time my examination patient seems to be saddened and expresses frustration regarding the care that he has received. Patient is ambulatory SPO2 this morning was in the 80s which qualified him for home oxygen. Given that the patient is currently on nasal cannula infectious disease has opted to which start the patient on remdesivir therapy. 12/06: This morning during my examination patient seems to be exhausted and remains on 2 L nasal cannula. Infectious disease recommends obtaining an ambulatory SPO2 in the morning and discharging if clearing. Patient still states that he coughs with movement to the point where he experiences shortness of breath. Patient expresses the desire to be discharged. Hospitalist Physical - Constitutional Vitals: Temp Pulse Resp BP Pulse Ox 98.2 F 52 L 20 113/49 97 12/06/20 06:37 12/06/20 10:02 12/06/20 10:02 12/06/20 06:37 12/06/20 10:01 General appearance: Present: mild distress, well-nourished, obese - EENT Eyes: Present: PERRL, EOM intact ENT: hearing intact, clear oral mucosa, poor dentition - Neck Neck: Present: normal ROM - Respiratory Respiratory effort: normal - Cardiovascular Rhythm: regular - Extremities Extremities: no ischemia, pulses intact, pulses symmetrical, No edema, normal temperature, normal color, Full ROM Peripheral Pulses: within normal limits - Abdominal General gastrointestinal: soft, non-tender, non-distended, normal bowel sounds - Integumentary Integumentary: Present: clear, warm, dry - Psychiatric Psychiatric: appropriate mood/affect, cooperative - Neurologic Neurologic: CNII-XII intact, no focal deficits, moves all extremities - Allied Health Allied health notes reviewed: nursing HEART Score - HEART Score EKG: Normal Age: 45-65 Risk factors: 1-2 risk factors Troponin: Troponin T < 0.010 ng/mL (0.00-0.029) 12/02/20 13:23 Troponin: < normal limit - Critical Actions Critical Actions: 0-3 pts:0.9-1.7%risk of adverse cardiac event.Candidate for discharge Results - Labs CBC & Chem 7: 12/03/20 09:38 12/06/20 04:42 Labs: Laboratory Last Values WBC 6.3 K/mm3 (4.5-11.0) 12/03/20 09:38 RBC 5.81 M/mm3 (3.65-5.03) H 12/03/20 09:38 Hgb 14.8 gm/dl (11.8-15.2) 12/03/20 09:38 Hct 43.5 % (35.5-45.6) 12/03/20 09:38 MCV 75 fl (84-94) L 12/03/20 09:38 MCH 26 pg (28-32) L 12/03/20 09:38 MCHC 34 % (32-34) 12/03/20 09:38 RDW 15.4 % (13.2-15.2) H 12/03/20 09:38 Plt Count 272 K/mm3 (140-440) 12/03/20 09:38 Lymph % (Auto) 15.0 % (13.4-35.0) 12/03/20 09:38 [place] % (Auto) 7.5 % (0.0-7.3) H 12/03/20 09:38 Eos % (Auto) 0.0 % (0.0-4.3) 12/03/20 09:38 Baso % (Auto) 0.3 % (0.0-1.8) 12/03/20 09:38 Lymph # (Auto) 0.9 K/mm3 (1.2-5.4) L 12/03/20 09:38 [place] # (Auto) 0.5 K/mm3 (0.0-0.8) 12/03/20 09:38 Eos # (Auto) 0.0 K/mm3 (0.0-0.4) 12/03/20 09:38 Baso # (Auto) 0.0 K/mm3 (0.0-0.1) 12/03/20 09:38 Seg Neutrophils % 77.2 % (40.0-70.0) H 12/03/20 09:38 Seg Neutrophils # 4.8 K/mm3 (1.8-7.7) 12/03/20 09:38 D-Dimer 582.02 ng/mlDDU (0-234) H 12/04/20 09:07 Sodium 139 mmol/L (137-145) 12/06/20 04:42 Potassium 3.8 mmol/L (3.6-5.0) 12/06/20 04:42 Chloride 100.9 mmol/L (98-107) 12/06/20 04:42 Carbon Dioxide 33 mmol/L (22-30) H 12/06/20 04:42 Anion Gap 9 mmol/L 12/06/20 04:42 BUN 13 mg/dL (9-20) 12/06/20 04:42 Creatinine 0.7 mg/dL (0.8-1.3) L 12/06/20 04:42 Estimated GFR > 60 ml/min 12/06/20 04:42 BUN/Creatinine Ratio 19 % 12/06/20 04:42 Glucose 106 mg/dL (75-100) H 12/06/20 04:42 POC Glucose 188 mg/dL (70-105) H 12/02/20 21:59 Hemoglobin A1c 6.8 % (4-6) H 12/03/20 09:38 Lactic Acid 1.60 mmol/L (0.7-2.0) 12/02/20 13:23 Calcium 8.3 mg/dL (8.4-10.2) L 12/06/20 04:42 Ferritin 1465.0 ng/mL (30.0-300.0) H 12/04/20 09:07 Total Bilirubin 0.20 mg/dL (0.1-1.2) 12/06/20 04:42 Direct Bilirubin < 0.2 mg/dL (0-0.2) 12/04/20 05:50 Indirect Bilirubin 0.1 mg/dL 12/04/20 05:50 AST 25 units/L (5-40) 12/06/20 04:42 ALT 48 units/L (7-56) 12/06/20 04:42 Alkaline Phosphatase 78 units/L (35-129) 12/06/20 04:42 Lactate Dehydrogenase 493 units/L (91-180) H 12/04/20 09:07 Troponin T < 0.010 ng/mL (0.00-0.029) 12/02/20 13:23 C-Reactive Protein 5.20 mg/dL (0.00-1.30) H 12/04/20 09:07 Total Protein 7.0 g/dL (6.3-8.2) 12/06/20 04:42 Albumin 3.1 g/dL (3.9-5) L 12/06/20 04:42 Albumin/Globulin Ratio 0.8 % 12/06/20 04:42 Procalcitonin 0.18 ng/mL (<0.15) 12/02/20 12:19 Urine Color Yellow (Yellow) 12/02/20 14:44 Urine Turbidity Clear (Clear) 12/02/20 14:44 Urine pH 6.0 (5.0-7.0) 12/02/20 14:44 Ur Specific [place] 1.015 (1.003-1.030) 12/02/20 14:44 Urine Protein 30 mg/dl mg/dL (Negative) 12/02/20 14:44 Urine Glucose (UA) Neg mg/dL (Negative) 12/02/20 14:44 Urine Ketones Neg mg/dL (Negative) 12/02/20 14:44 Urine Blood Neg (Negative) 12/02/20 14:44 Urine Nitrite Neg (Negative) 12/02/20 14:44 Urine Bilirubin Neg (Negative) 12/02/20 14:44 Urine Urobilinogen 2.0 mg/dL (<2.0) 12/02/20 14:44 Ur Leukocyte Esterase Neg (Negative) 12/02/20 14:44 Urine WBC (Auto) 1.0 /HPF (0.0-6.0) 12/02/20 14:44 Urine RBC (Auto) 0.0 /HPF (0.0-6.0) 12/02/20 14:44 Coronavirus (PCR) Positive (Negative) A 12/03/20 Unknown Microbiology: Microbiology 12/02/20 12:19 Peripheral/Venous Blood Culture - Preliminary NO GROWTH AFTER 4 DAYS 12/02/20 12:19 Peripheral/Venous Blood Culture - Preliminary NO GROWTH AFTER 4 DAYS Ramirez/IV: Voiding Method Toilet IV Catheter Type [Right Peripheral IV Antecubital] Active Medications - Current Medications Current Medications: Generic Name Dose Route Start Last Admin Trade Name Freq PRN Reason Stop Dose Admin Acetaminophen 650 mg 12/02/20 23:43 Acetaminophen 325 Mg Tab PO Q4H PRN Pain MILD(1-3)/Fever >100.5/BAKER Albuterol/Ipratropium 1 ampul 12/06/20 20:00 Ipratropium/Albuterol Sulfate 3 Ml Ampul.Neb IH BIDRT GABRIELA Ascorbic Acid 1,000 mg 12/02/20 23:45 12/06/20 09:41 Ascorbic Acid 500 Mg Tab PO 1,000 mg BID GABRIELA Administration Cholecalciferol 5,000 unit 12/04/20 10:00 12/06/20 09:42 Cholecalciferol (Vit D3) 5,000 Unit Tab PO 5,000 unit DAILY GABRIELA Administration Dexamethasone 6 mg 12/04/20 10:00 12/06/20 09:40 Dexamethasone 4 Mg Tab PO 12/11/20 12:00 6 mg DAILY GABRIELA Administration Enoxaparin Sodium 60 mg 12/06/20 10:00 12/06/20 09:41 Enoxaparin 60 Mg/0.6 Ml Inj SUB-Q 60 mg QDAY GABRIELA Administration Protocol Guaifenesin 600 mg 12/03/20 18:00 12/06/20 10:19 Guaifenesin Er 600 Mg Tab PO Not Given BID GABRIELA Hydrocodone Bit/Homatropine Methylb 10 ml 12/05/20 15:30 12/06/20 06:44 Hydrocodone/Homatropine 5-1.5mg /5 Ml Oral Liqd Unit Dose PO 10 ml Q8HR PRN Administration Cough Hydromorphone HCl 0.5 mg 12/02/20 23:43 Hydromorphone 1 Mg/1 Ml Inj IV Q3H PRN Pain , Severe (7-10) REMDESIVIR 100 mg/ Sodium 250 mls @ 500 mls/hr 12/06/20 21:00 Chloride IV 12/09/20 21:29 Q24HR@2100 GABRIELA Loperamide HCl 2 mg 12/03/20 16:00 Loperamide 2 Mg Cap PO Q2H PRN Diarrhea Melatonin 5 mg 12/05/20 22:00 12/05/20 22:29 Melatonin 5 Mg Tab PO 5 mg QHS PRN Administration Sleep Metoclopramide HCl 10 mg 12/02/20 23:43 Metoclopramide 10 Mg/2 Ml Inj IV Q6H PRN Nausea And Vomiting Ondansetron HCl 4 mg 12/02/20 23:43 12/04/20 11:26 Ondansetron 4 Mg/2 Ml Inj IV 4 mg Q8H PRN Administration Nausea And Vomiting Oxycodone/Acetaminophen 1 tab 12/02/20 23:43 12/04/20 12:59 Oxycodone /Acetaminophen 5-325mg Tab PO 1 tab Q6H PRN Administration Pain, Moderate (4-6) Pantoprazole Sodium 40 mg 12/05/20 10:00 12/06/20 09:41 Pantoprazole 40 Mg Tab PO 40 mg DAILY GABRIELA Administration Sodium Chloride 10 ml 12/03/20 10:00 12/06/20 09:43 Sodium Chloride 0.9% 10 Ml Flush Syringe IV 10 ml BID GABREILA Administration Sodium Chloride 10 ml 12/02/20 23:43 Sodium Chloride 0.9% 10 Ml Flush Syringe IV PRN PRN LINE FLUSH Sodium Chloride 50 ml 12/05/20 14:30 12/05/20 14:54 Sodium Chloride 0.9% 50 Ml Ivpb IV 12/09/20 21:01 50 ml Q24HR@2100 GABRIELA Administration Zinc Sulfate 220 mg 12/06/20 10:00 12/06/20 09:41 Zinc Sulfate 220 Mg Cap PO 220 mg DAILY GABRIELA Administration Nutrition/Malnutrition Assess - Dietary Evaluation Nutrition/Malnutrition Findings: Nutrition Notes Start: 12/03/20 15:27 Freq: Status: Active Protocol: Document 12/05/20 11:30 AB (Rec: 12/05/20 11:42 AB [id number]) Co-Sign 12/05/20 11:30 LP Nutrition Notes Initial or Follow up Reassessment Current Diagnosis Diabetes Other Pertinent Diagnosis Pneu, acure respiratory failure, GERD, COVID(+) Current Diet Consistent CHO Labs/Tests Reviewed Pertinent Medications Vit D3 Zinc Vit C Height 5 ft 11 in Weight 104.2 kg [place] Body Weight (kg) 78.18 BMI 32.0 Intake Prior to Admission Poor Weight change and time frame 5% wt loss in 2 days Weight Status Obese Subjective/Other Information F/U for intakes. Spoke with pt on phone and is continuing to have loss of appetite but improving. Pt stated a 50% consumption of breakfast today . Pt stated diarrhea that is happening after he ate. Per med list, pt has imodium PRN. Pt states that he would like to try a suppl daily to increase intake. Percent of energy/protein needs met: 58%/70% Burn Absent Trauma Absent GI Symptoms Nausea,Diarrhea Current % PO Fair (50-74%) Minimum of two criteria Yes Energy Intake (non-severe) <75% Estimated Energy Requirement >7 days Interpretation of Weight Loss (severe) >2% in 1 week #2 Nutrition Diagnosis Malnutrition Etiology COVID-19 As Evidenced by Signs and Symptoms < 75% of EER in 7 days, >2% of wt loss in 1 week #1 Nutrition Diagnosis Inadequate oral intake As Evidenced by Signs and Symptoms Pt eating 50% of meals Diagnosis Progress(for reassessment Improved documentation) Is patient on ventilator? No Is Patient Ambulatory and/or Out of Bed Yes REE-([place]-St. Jeor-ambulatory/OOB) [ 2527.369 NUTR.[id number]] Kcal/Kg value to use for calculation 19 Approximate Energy Requirements Using 1980 kcal/Kg Calculation Used for Recommendations Kcal/kg Additional Notes Protein: 75-94g (0.8-1g/kg AdjBW: 94kg) Fluid: 1ml/kcal Nutrition Intervention Change Diet Order: Continue Add Supplement/Snack (indicate name/kcal Ensure Enlive daily /protein ) Provides kCal: 350 Provides Protein (gm) 20 Goal #1 Meet at least 80% of protein and energy needs via PO and ONS intakes Anticipated Discharge Needs: Consistent CHO Follow-Up By: 12/11/20 Additional Comments F/U for intakes, ONS tolerance , wt changes
--- NOTE | 2020-12-06 18:05 | Event Note ---
Date: 12/06/20 I called the patient's Ms. Ma at [phone] and updated patient's condition, tests and reports, home oxygen set up Consultants recommendations and treatment plan, answered all her questions, she expressed that she would like to talk to ID physician. Encouraged her to discuss with patient's nurse to connect her with ID physician tomorrow morning.
[2020-12-06] MEDS ORDERED: IPRATROPIUM/ALBUTEROL SULFATE 3 ML AMPUL.NEB IH SCH (20:00)
[2020-12-06] MEDS ORDERED: REMDESIVIR 100 MG in SODIUM CHLORIDE 0.9% 250ML 250 ML IV SCH (21:00)
[2020-12-06] MEDS: MELATONIN 5 MG TAB PO PRN (21:24)
[2020-12-06] MEDS: SODIUM CHLORIDE 0.9% 50 ML IVPB IV SCH (21:24)
[2020-12-06] MEDS ORDERED: ALBUTEROL 8.5 GM MDI INHALATION IH PRN (21:41)
[2020-12-07 09:21] LABS: Alanine Aminotransferase 52 units/L (7-56); Albumin 3.4 g/dL (3.9-5); BUN/Creatinine Ratio 19; Blood Urea Nitrogen 13 mg/dL (9-20); Calcium 8.5 mg/dL (8.4-10.2); Hemolysis Index 18
[2020-12-07] MEDS: ZINC SULFATE 220 MG CAP PO SCH (09:42)
[2020-12-07] MEDS: ENOXAPARIN 60 MG/0.6 ML INJ SUB-Q SCH (09:43)
[2020-12-07] MEDS: PANTOPRAZOLE 40 MG TAB PO SCH (09:43)
[2020-12-07] MEDS: CHOLECALCIFEROL (VIT D3) 5,000 UNIT TAB PO SCH (09:43)
[2020-12-07] MEDS: DEXAMETHASONE 4 MG TAB PO SCH (09:43)
[2020-12-07] MEDS: ASCORBIC ACID 500 MG TAB PO SCH (09:43)
[2020-12-07] MEDS: guaiFENesin ER 600 MG TAB PO SCH (09:44)
--- NOTE | 2020-12-07 11:50 | Progress Note ---
Assessment and Plan Cultures: SARS CoV2 PCR: Positive Blood culture: no growth. A/P: 45-year-old male with borderline diabetes: #Bilateral pneumonia: Secondary to COVID-19. No PE on CTA. #Acute hypoxic respiratory failure: now on oxygen. #Transaminitis: Secondary to COVID-19 #Diabetes mellitus type 2 Recs: -continue Remdesivir, D3 (max duration: 5 days) -continue steroids: Decadron x 10 days -prophylactic anticoagulation based on d-dimer per hospital protocol -trend ferritin, LDH, d-dimer, CRP every 2-3 days for risk stratification and to assess disease progression -get ambulatory sats in AM, if cleared, can discharge home, does not need to complete full course of Remdesivir I called the patient's at the number listed ([phone]) in Dr. Castellon's note, went to [employer], left message. Mirna Benites MD, FACP [facility], [place], [facility] ([facility]) O: [phone] F: [phone] Subjective Date of service: 12/07/20 Interval history: Afebrile. On nasal cannula oxygen. Objective - Exam Narrative Exam: Physical Exam: (deferred to minimize transmission risk) reviewed in the chart. - Constitutional Vitals: Vital Signs Temp Pulse Resp BP Pulse Ox 98.6 F 45 L 16 116/57 95 12/07/20 04:27 12/07/20 04:27 12/07/20 04:27 12/07/20 04:27 12/07/20 10:00 Temperature -Last 24 Hours Temperature 98.6 F Temperature 97.9 F Temperature 97.3 F - Labs CBC & Chem 7: 12/03/20 09:38 12/07/20 08:00 Labs: Abnormal lab results 12/07/20 Range/Units 08:00 Carbon Dioxide 31 H (22-30) mmol/L Creatinine 0.7 L (0.8-1.3) mg/dL Glucose 140 H (75-100) mg/dL Albumin 3.4 L (3.9-5) g/dL
--- NOTE | 2020-12-07 13:21 | Discharge Summary ---
Providers - Providers Date of Admission: 12/03/20 15:06 Attending physician: DANE TIJERINA 12/03/20 15:18 Consult to Physician [CONS] Routine Comment: Consulting Provider: JESSICA JOYNER Physician Instructions: Reason For Exam: Positive Covid 19/bilateral pneumonia Primary care physician: TELEHEALTH NURSE EDUCATOR Hospitalization Condition: Serious Hospital course: This is a 45-year-old male with borderline diabetes, GERD and current tobacco abuse (half a pack per day) who presented to the emergency department on 12/02 for fevers, chills, diaphoresis, body aches and fatigue over the past 7 days. Patient tested positive for COVID-19 and November 29, 2020 and says he was exposed at work. Work-up in the emergency department included a CXR which showed faint bilateral peripheral pulmonary opacities which are compatible with infectious process including viral etiologies, elevated D-dimer at 721, CTA chest showed no evidence of pulmonary embolism and diffuse bilateral peripheral groundglass opacities consistent with atypical or viral pneumonia, hyponatremia at 132, hypochloremia as 97.5, hyperglycemia 188, transaminitis (AST 94, ALT 125, alk phos 104) and elevated COVID-19 inflammatory markers. Patient was admitted to the hospital service and made a COVID-19 PUI. Infectious disease was consulted. Pn 12/03 his COVID-19 PCR resulted as positive,he remains of room air but symptomatically better. A 6-minute walk test revealed SPO2 89% on room air. On 12/05 patient had episode of severe nausea, we hypertension and sodiums of the large bowel movement but he did not have any loss of consciousness and symptoms resolved. On 12/05 the the patient is ambulatory SPO2 was in the 80s which qualified him for home DME oxygen however given that the patient was currently on nasal cannula infectious disease has opted to start the patient on remdesivir therapy. On 12/06 patient remained on 2 L nasal cannula and still complained of coughing resulting in shortness of breath. On 12/07 patient is ambulatory SPO2 did not qualify him for home oxygen and he will be discharged to complete his 10-day course of steroid therapy. Patient will need to follow-up with his primary care physician within 1 to 2 weeks of discharge. Smoking cessation strongly encouraged. Assessment and Plan COVID-19 pneumonia -12/02 CXR shows faint bilateral peripheral pulmonary opacities which are compatible with infectious process including viral etiologies -12/02 CTA chest shows diffuse bilateral peripheral groundglass opacities consistent with atypical viral pneumonia, no pulmonary embolism -Patient tested positive for COVID-19 infection on 11/29/2020 at outside facility -12/03 COVID-19 PCR positive -S/p azithromycin and Solu-Medrol in the emergency department -Azithromycin 500 mg p.o. daily for 3 doses, ceftriaxone 2 g per 24 hours IV which were discontinued given normal procalcitonin -12/02 procalcitonin 0.18 -Continue pulmonary hygiene -Continue ambulation 3 times a day and as tolerated -OOB 3 times daily -Infectious disease consulted, appreciate recommendations -Continue Vitamin C, zinc, vitamin D -12/02 blood cultures x2 no growth to date -12/05-12/07 Remdisiver Acute hypoxemic respiratory failure -SPO2 on arrival to the emergency department was low -Dexamethasone for 10 days -Continue pulmonary hygiene -Per ambulatory SPO2 patient does not qualify for home oxygen at this time Elevated D-dimer -12/02 D-dimer 721 -12/02 CTA chest negative for pulmonary embolism -12/04 bilateral lower extremity duplex ultrasound shows no acute DVT or SVT -Discharge D-dimer 582 -Patient will be discharged with Eliquis 2.5 twice daily for 7 days Transaminitis -Presented with AST 94, ALT 125, alk phos 104 with T bili 0.30 -12/03 LFTs: T bili 0.3, AST 67, ALT 108 -12/04 LFTs: T bili 0. 3, T bili less than 0.2, indirect bili 0.1, AST 49, ALT 78, alk phos 88 -Likely secondary to COVID-19 infection Metabolic alkalosis -12/06 CO2 on BMP is 33 -Discharge CO2 on BMP is 31 Diabetes mellitus -Patient states that he has "borderline diabetes" -12/03 hemoglobin A1c 6.8 -Continue carb controlled diet -Encourage dietary and lifestyle modifications -Follow-up with primary care physician within 1 to 2 weeks of discharge CC diet Tobacco abuse -Smoking cessation education completed -Consider transdermal nicotine patch to aid in cessation DVT prophylaxis -Patient will be discharged with Eliquis 2.5 twice daily for 14 days Hyponatremia, resolved -12/02 presented with a sodium of 132 -Trend BMP -12/03 sodium 138 Hypochloremia, resolved -12/02 chloride 97.5 -12/03 chloride 103.9 -Trend BMP Disposition: DC-01 TO HOME OR SELFCARE Time spent for discharge: 35 Core Measure Documentation - Palliative Care Palliative Care/ Comfort Measures: Not Applicable - Core Measures Any of the following diagnoses?: none Exam - Constitutional Vitals: Temp Pulse Resp BP Pulse Ox 98.6 F 45 L 16 116/57 95 12/07/20 04:27 12/07/20 04:27 12/07/20 04:12/07/20 04:12/07/20 10:00 Plan Activity: advance as tolerated Diet: low fat, low cholesterol, diabetic, low carbohydrate Special Instructions: record blood sugar diary, smoking cessation Additional Instructions: Present to nearest emergency department or contact primary care physician if experience worsening symptoms. You need to follow-up with your primary care physician within 1 to 2 weeks of discharge you will be discharged with Eliquis 2.5 mg twice daily for 14 days. Smoking cessation strongly encouraged. You will be discharged with steroid therapy to complete your 10-day course. Follow the COVID-19 guidelines set for by the CDC and contained within the pamphlet that your RN will provide you. Follow up with: PRIMARY CARE, [Primary Care Provider] - 3-5 Days [facility] [Outside] - 7 Days [facility] [Outside] - 7 Days [facility] [Outside] - 7 Days [facility] [Outside] - 7 Days Prescriptions: dexAMETHasone [Decadron] 6 mg PO DAILY #4 tablet Apixaban [Eliquis] 2.5 mg PO BID #14 tablet HYDROcodone/HOMATROP 5-1.5 [HYDROcodone-Homatropin 5-1.5 mg per 5 ML] 10 ml PO Q8HR PRN #50 ml PRN Reason: Cough Ascorbic Acid [Vitamin C] 1,000 mg PO BID #60 tablet Cholecalciferol (Vitamin D3) [Vitamin D3] 5,000 unit PO DAILY #30 tablet Zinc Sulfate 220 mg PO DAILY #30 capsule
[2020-12-07 13:41] VITALS: BP 98/42
== END 2020-12-07 15:30 | disposition home or self-care (01) | DRG 177 ==
LOC: ED 11:43 → 3A 14:30 → OBSVTOIN 12-03 15:06
PROVIDERS: ADMIT Internal Medicine; ATTEND Internal Medicine
PROC: XW033E5 Introduction of Remdesivir Anti-infective into Peripheral Vein, Percutaneous Approach, New Technology Group 5 (ICD-10-PCS; principal; 2020-12-05)
DX: U07.1 COVID-19 (principal); J96.01 Acute respiratory failure with hypoxia; J12.82 Pneumonia due to coronavirus disease 2019; E87.1 Hypo-osmolality and hyponatremia; E87.3 Alkalosis; R74.01 Elevation of levels of liver transaminase levels; E87.8 Other disorders of electrolyte and fluid balance, not elsewhere classified; K21.9 Gastro-esophageal reflux disease without esophagitis; F17.210 Nicotine dependence, cigarettes, uncomplicated; Z79.899 Other long term (current) drug therapy
CPT/HCPCS: 36415; 71045; 71275; 80053; 80076; 81001; 82140; 82728; 82962; 83036; 83615; 84145; 84484; 85025; 85379; 86140; 87040; 93005; 93970; 94640; 94760; 96374; 96375; 99406; G0378; J0456; J0696; J1100; J1200; J1650; J1885; J2405; J2930; J7030; J8540; Q9967; U0003